=== PATIENT | female | born 1935 | race Two or more races ===

== ENCOUNTER → 2016-07-18 | Outpatient (CLI) | payer MEDICARE | END | disposition home or self-care (01) | LOC: CPPFTMAIN 09:59 | PROVIDERS: ATTEND Internal Medicine | DX: J44.9 Chronic obstructive pulmonary disease, unspecified (principal) | CPT/HCPCS: 94060; 94726; 94729 ==

== ENCOUNTER 2021-05-26 18:56 | Emergency (ER) | payer MEDICARE ==
[2021-05-26 19:10] VITALS: TEMP 97.9
--- NOTE | 2021-05-26 19:54 | XR ---
EXAMINATION TYPE: XR chest 2V DATE OF EXAM: 05/26/2021 COMPARISON: 05/13/2015 HISTORY: Difficulty breathing TECHNIQUE: Frontal and lateral views of the chest are obtained. FINDINGS: There is no focal air space opacity, pleural effusion, or pneumothorax seen. The cardiac silhouette size is within normal limits. The osseous structures are stable. Stable lower thoracic s pine compression deformity with kyphosis. Stable 7 mm left lower long calcified granuloma. Post surgi fernando changes involving the right upper long with suggestion of bullous changes. IMPRESSION: No acute cardiopulmonary process. Chronic findings as above.
[2021-05-26] MEDS ORDERED: ACETAMINOPHEN TAB 325 MG TAB PO STA (20:20)
[2021-05-26 20:27] LABS: HCT 41.5 % (34.0-46.0); HGB 13.6 gm/dL (11.4-16.0); MCH 31.2 pg (25.0-35.0); MCHC 32.8 g/dL (31.0-37.0); MCV 95.1 fL (80.0-100.0); Platelet Count 314 k/uL (150-450); RBC 4.36 m/uL (3.80-5.40); RDW 12.9 % (11.5-15.5)
[2021-05-26 20:28] LABS: Basophils % (A) 0 %; Eosinophils # (A) 0.1 k/uL (0-0.7); Eosinophils % (A) 1 %; Lymphocytes # (A) 1.4 k/uL (1.0-4.8); Lymphocytes % (A) 14 %; Monocytes # (A) 0.8 k/uL (0-1.0); Monocytes % (A) 8 %; Neutrophils # (A) 7.4 k/uL (1.3-7.7); Neutrophils % (A) 74 %
[2021-05-26 20:32] LABS: INR 0.9 (<1.2); Partial Thromboplastin Time 24.3 sec (22.0-30.0); Prothrombin Time 10.4 sec (9.0-12.0)
--- NOTE | 2021-05-26 20:56 | ED ---
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 The facility completes pulse ox checks on the patient twice a day. They were unable to obtain a pulse ox on the patient this evening and therefore sent the patient into the emergency department for evaluation. She is not having any respiratory complaints. Daughter is at bedside and helps with the history. She denies that the patient has had any worsening shortness of breath, fevers, cough. the patient denies any complaints but does have a history of dementia. No other alleviating, precipitating or modifying factors - Related Data Home Medications Medication Instructions Recorded Confirmed Acetaminophen [Tylenol Arthritis] 1,300 mg PO Q8H PRN 05/26/21 05/26/21 Artificial Tears-Hypromellose 1 drops BOTH EYES DIRECTED PRN 05/26/21 05/26/21 [Artificial Tear Drops] Aspirin EC [Ecotrin Low Dose] 81 mg PO DAILY@0800 05/26/21 05/26/21 Bismuth Subsalicylate 1 dose PO DIRECTED PRN 05/26/21 05/26/21 [Pepto-Bismol] Budesonide/Formoterol Fumarate 2 puff INHALATION RT-BID 05/26/21 05/26/21 [Symbicort 160-4.5 Mcg Inhaler] Carbamide Peroxide [Debrox Otic] 1 applic BOTH EARS DIRECTED PRN 05/26/21 05/26/21 Cholecalciferol [Vitamin D3 (25 25 mcg PO DAILY@0800 05/26/21 05/26/21 Mcg = 1000 Iu)] Gnp Muscle Rub 10-15% Cream 1 applic TOPICAL DIRECTED PRN 05/26/21 05/26/21 Hydrocortisone Cream 1 applic TOPICAL DIRECTED PRN 05/26/21 05/26/21 [Hydrocortisone 1% Cream] Ibuprofen [Motrin] 600 mg PO BID PRN 05/26/21 05/26/21 Ipratropium/Albuter 20-100Mcg 1 puff INHALATION RT-QID 05/26/21 05/26/21 [Combivent Respimat 20-100Mcg Inhaler] Loperamide HCl [Loperamide] 2 mg PO DIRECTED PRN 05/26/21 05/26/21 Loratadine 10 mg PO Q48H 05/26/21 05/26/21 Mag Hydrox/Aluminum Hyd/Simeth 1 dose PO DIRECTED PRN 05/26/21 05/26/21 [Mylanta Maximum Strength Liq] Magnesium Capsule 300 mg PO DAILY@0800 05/26/21 05/26/21 Magnesium Hydroxide [Milk of 1 dose PO DIRECTED PRN 05/26/21 05/26/21 Magnesia] Methyl Salicylate/Menth/Camph 1 patch TOPICAL DAILY PRN 05/26/21 05/26/21 [Salonpas 3.1%-6.0%-10.0% Patch] Multivitamins, Thera [Multivitamin 1 tab PO DAILY@0800 05/26/21 05/26/21 (formulary)] Uzoudzws-Zynynyehbi-Ytsi Oint 1 applic TOPICAL DIRECTED PRN 05/26/21 05/26/21 [Triple Antibiotic Ointment] Simethicone [Gas-X] 1 dose PO DIRECTED PRN 05/26/21 05/26/21 Sudogest Pe 10 mg PO DIRECTED PRN 05/26/21 05/26/21 Topricin Pain Relief Cream 1 applic TOPICAL QID PRN 05/26/21 05/26/21 guaiFENesin-Coden 100-10MG/5ML 1 dose PO DIRECTED PRN 05/26/21 05/26/21 [Robitussin AC] Allergies Allergy/AdvReac Type Severity Reaction Status Date / Time adhesive AdvReac Unknown Verified 05/26/21 21:36 bacitracin AdvReac Unknown Verified 05/26/21 21:36 [From Neosporin ([id number])] bacitracin zinc AdvReac Unknown Verified 05/26/21 21:36 [From Neosporin ([id number])] neomycin sulfate AdvReac Unknown Verified 05/26/21 21:36 [From Neosporin ([id number])] polymyxin B AdvReac Unknown Verified 05/26/21 21:36 [From Neosporin ([id number])] Review of Systems ROS Statement: Those systems with pertinent positive or pertinent negative responses have been documented in the HPI. ROS Other: All systems not noted in ROS Statement are negative. Past Medical History Past Medical History: COPD, Dementia, Hypertension, Pneumonia Additional Past Medical History / Comment(s): 05-10-15 50% PNEUMOTHORAZ RT LUNG/CHEST TUBE PLACED. OTHER PAST MEDICAL HX INCLUDES: bronchitis, osteoporosis, lt eye cataract, poor circulation to legs, dry skin on ffet,varicsoe veins.occ vertigo History of Any Multi-Drug Resistant Organisms: None Reported Past Surgical History: No Surgical Hx Reported Additional Past Surgical History / Comment(s): throat polyps remoced Past Anesthesia/Blood Transfusion Reactions: No Reported Reaction Additional Past Anesthesia/Blood Transfusion Reaction / Comment(s): clausterphobia Past Psychological History: No Psychological Hx Reported Smoking Status: Former smoker Past Alcohol Use History: None Reported Past Drug Use History: None Reported - Past Family History Father Family Medical History: Coronary Artery Disease (CAD) Additional Family Medical History / Comment(s): ashd, at age 86 Mother Additional Family Medical History / Comment(s): at age 41 in childbirth General Exam Limitations: altered mental status General appearance: alert, in no apparent distress Head exam: Present: atraumatic, normocephalic, normal inspection Eye exam: Present: normal appearance, PERRL, EOMI. Absent: scleral icterus, conjunctival injection, periorbital swelling ENT exam: Present: normal exam, mucous membranes moist Neck exam: Present: normal inspection. Absent: tenderness, meningismus, lymphadenopathy Respiratory exam: Present: decreased breath sounds. Absent: respiratory distress, wheezes, rales, rhonchi, stridor Cardiovascular Exam: Present: regular rate, normal rhythm, normal heart sounds. Absent: systolic murmur, diastolic murmur, rubs, gallop, clicks GI/Abdominal exam: Present: soft, normal bowel sounds. Absent: distended, tenderness, guarding, rebound, rigid Extremities exam: Present: normal inspection, full ROM, normal capillary refill. Absent: tenderness, pedal edema, joint swelling, calf tenderness Back exam: Present: normal inspection Neurological exam: Present: alert, oriented X3, CN II-XII intact Psychiatric exam: Present: normal affect, normal mood Skin exam: Present: warm, dry, intact, normal color. Absent: rash Course Vital Signs 05/26/21 05/26/21 05/26/21 19:02 20:10 20:50 Temperature 97.9 F Pulse Rate 89 87 Respiratory 20 22 22 Rate Blood Pressure 143/82 130/80 O2 Sat by Pulse 99 95 Oximetry 05/26/21 05/26/21 21:30 22:36 Temperature Pulse Rate 78 Respiratory 18 Rate Blood Pressure 125/76 O2 Sat by Pulse 97 98 Oximetry EKG Findings - EKG Comments: EKG Findings:: EKG demonstrates sinus rhythm with a rate of 89. NV interval 160. QRS 93. QTC 388. J-point elevation in V2 through V4. No reciprocal depression Medical Decision Making - Medical Decision Making Upon arrival patient is placed into room 22. Thorough history and physical exam was performed. Patient does have an oxygen saturation of 98% IV access is established and laboratory studies were conducted. Chest x-ray is performed which demonstrates no acute cardio pulmonary process. Patient continues to maintain a saturation 98%. Patient will be discharged back to [facility] which the patient and her daughter did agree to this plan. Return for any new or worsening symptoms. Patient was discharged home in stable condition - Lab Data Result diagrams: 05/26/21 20:17 05/26/21 20:41 Lab Results 05/26/21 05/26/21 05/26/21 Range/Units 20:17 20:17 20:17 WBC 10.0 (3.8-10.6) k/uL RBC 4.36 (3.80-5.40) m/uL Hgb 13.6 (11.4-16.0) gm/dL Hct 41.5 (34.0-46.0) % MCV 95.1 (80.0-100.0) fL MCH 31.2 (25.0-35.0) pg MCHC 32.8 (31.0-37.0) g/dL RDW 12.9 (11.5-15.5) % Plt Count 314 (150-450) k/uL MPV 9.0 Neutrophils % 74 % Lymphocytes % 14 % Monocytes % 8 % Eosinophils % 1 % Basophils % 0 % Neutrophils # 7.4 (1.3-7.7) k/uL Lymphocytes # 1.4 (1.0-4.8) k/uL Monocytes # 0.8 (0-1.0) k/uL Eosinophils # 0.1 (0-0.7) k/uL Basophils # 0.0 (0-0.2) k/uL PT 10.4 (9.0-12.0) sec INR 0.9 (<1.2) APTT 24.3 (22.0-30.0) sec Sodium (137-145) mmol/L Potassium (3.5-5.1) mmol/L Chloride (98-107) mmol/L Carbon Dioxide (22-30) mmol/L Anion Gap mmol/L BUN (7-17) mg/dL Creatinine (0.52-1.04) mg/dL Est GFR (CKD-EPI)AfAm (>60 ml/min/1.73 sqM) Est GFR (CKD-EPI)NonAf (>60 ml/min/1.73 sqM) Glucose (74-99) mg/dL Plasma Lactic Acid Alberto 1.2 (0.7-2.0) mmol/L Calcium (8.4-10.2) mg/dL Total Bilirubin (0.2-1.3) mg/dL AST (14-36) U/L ALT (4-34) U/L Alkaline Phosphatase (38-126) U/L Troponin I (0.000-0.034) ng/mL NT-Pro-B Natriuret Pep pg/mL Total Protein (6.3-8.2) g/dL Albumin (3.5-5.0) g/dL 05/26/21 05/26/21 05/26/21 Range/Units 20:17 20:17 20:41 WBC (3.8-10.6) k/uL RBC (3.80-5.40) m/uL Hgb (11.4-16.0) gm/dL Hct (34.0-46.0) % MCV (80.0-100.0) fL MCH (25.0-35.0) pg MCHC (31.0-37.0) g/dL RDW (11.5-15.5) % Plt Count (150-450) k/uL MPV Neutrophils % % Lymphocytes % % Monocytes % % Eosinophils % % Basophils % % Neutrophils # (1.3-7.7) k/uL Lymphocytes # (1.0-4.8) k/uL Monocytes # (0-1.0) k/uL Eosinophils # (0-0.7) k/uL Basophils # (0-0.2) k/uL PT (9.0-12.0) sec INR (<1.2) APTT (22.0-30.0) sec Sodium 132 L (137-145) mmol/L Potassium 5.1 (3.5-5.1) mmol/L Chloride 103 (98-107) mmol/L Carbon Dioxide 19 L (22-30) mmol/L Anion Gap 10 mmol/L BUN 30 H (7-17) mg/dL Creatinine 1.13 H (0.52-1.04) mg/dL Est GFR (CKD-EPI)AfAm 51 (>60 ml/min/1.73 sqM) Est GFR (CKD-EPI)NonAf 44 (>60 ml/min/1.73 sqM) Glucose 110 H (74-99) mg/dL Plasma Lactic Acid Alberto (0.7-2.0) mmol/L Calcium 9.3 (8.4-10.2) mg/dL Total Bilirubin 0.6 (0.2-1.3) mg/dL AST 27 (14-36) U/L ALT 15 (4-34) U/L Alkaline Phosphatase 97 (38-126) U/L Troponin I <0.012 (0.000-0.034) ng/mL NT-Pro-B Natriuret Pep 382 pg/mL Total Protein 7.5 (6.3-8.2) g/dL Albumin 4.0 (3.5-5.0) g/dL Disposition Clinical Impression: Chronic respiratory insufficiency Disposition: HOME SELF-CARE Condition: Stable Instructions (If sedation given, give patient instructions): COPD (Chronic Obstructive Pulmonary Disease) (ED) Additional Instructions: Your oxygen level has been 98% on 2 L of oxygen. Please wear this at all times and follow up with primary care doctor. Return for any new or worsening sym ptoms Is patient prescribed a controlled substance at d/c from ED?: No Referrals: Audrey Whitney MD [Primary Care Provider] - 1-2 days Time of Disposition: 22:34
[2021-05-26 21:06] LABS: Calcium 9.3 mg/dL (8.4-10.2); Potassium 5.1 mmol/L (3.5-5.1); Total Bilirubin 0.6 mg/dL (0.2-1.3); Total Protein 7.5 g/dL (6.3-8.2)
[2021-05-26 22:38] VITALS: BP 125/76; PULSE 78; RESP 18
== END 2021-05-26 23:10 | disposition home or self-care (01) ==
LOC: EC 18:56
DX: R06.89 Other abnormalities of breathing (principal); R06.02 Shortness of breath; J44.9 Chronic obstructive pulmonary disease, unspecified; I10 Essential (primary) hypertension; Z87.891 Personal history of nicotine dependence; Z91.09 Other allergy status, other than to drugs and biological substances; Z88.1 Allergy status to other antibiotic agents; Z79.51 Long term (current) use of inhaled steroids; Z79.899 Other long term (current) drug therapy
CPT/HCPCS: 36415; 71046; 80053; 83605; 83880; 84484; 85025; 85610; 85730; 93005; 99285

== ENCOUNTER 2022-04-22 10:33 | Emergency (ER) | payer MEDICARE ==
[2022-04-22 10:40] VITALS: RESP 18; TEMP 97.7
[2022-04-22 10:57] LABS: Basophils % (A) 0 %; Eosinophils # (A) 0.2 k/uL (0-0.7); Eosinophils % (A) 2 %; HCT 41.9 % (34.0-46.0); HGB 13.3 gm/dL (11.4-16.0); Lymphocytes # (A) 1.2 k/uL (1.0-4.8); Lymphocytes % (A) 14 %; MCH 30.3 pg (25.0-35.0); MCHC 31.8 g/dL (31.0-37.0); MCV 95.4 fL (80.0-100.0); Mean Platelet Volume 9.5; Monocytes # (A) 0.4 k/uL (0-1.0); Monocytes % (A) 5 %; Neutrophils # (A) 6.7 k/uL (1.3-7.7); Neutrophils % (A) 78 %; Platelet Count 338 k/uL (150-450); RBC 4.39 m/uL (3.80-5.40); RDW 13.4 % (11.5-15.5); WBC 8.6 k/uL (3.8-10.6)
[2022-04-22 11:32] LABS: Calcium 9.6 mg/dL (8.4-10.2); Magnesium 2.3 mg/dL (1.6-2.3); Potassium 4.7 mmol/L (3.5-5.1); Total Bilirubin 0.8 mg/dL (0.2-1.3); Total Protein 7.7 g/dL (6.3-8.2)
--- NOTE | 2022-04-22 12:10 | XR ---
EXAMINATION TYPE: XR chest 2V DATE OF EXAM: 04/22/2022 COMPARISON: Chest x-ray May 26, 2021 HISTORY: Vomiting and weakness. TECHNIQUE: Frontal and lateral views of the chest are obtained. FINDINGS: Osseous structures redemonstrated demineralized. Exaggerated thoracic kyphosis redemonstra debora. There is severe compression type fracture in the lower thoracic spine redemonstrated. Underlying scoliosis is redemonstrated. Chronic parenchymal changes bilaterally redemonstrated without new foca l airspace opacity, pleural effusion, or pneumothorax seen. Cardiac silhouette size is stable in the upper limits of normal. There is calcified nodule or granuloma in the posterior left lower lobe redem onstrated. IMPRESSION: Chronic changes without acute pulmonary process. No significant change from prior.
--- NOTE | 2022-04-22 13:30 | CT ---
EXAMINATION TYPE: CT abdomen pelvis w con DATE OF EXAM: 04/22/2022 HISTORY: possible GI bleed. Pain and anemia. CT DLP: 536.1mGycm Automated Exposure Control for Dose Reduction was Utilized. CONTRAST: CT scan of the abdomen and pelvis is performed with IV Contrast, patient injected with 100 mL of Isov ue 300. COMPARISON: CTA August 01, 2021 FINDINGS: LUNG BASES: Emphysematous change with dependent atelectasis and left basilar calcified nodule or bert gn granuloma is redemonstrated. Coronary artery calcification is redemonstrated. LIVER/GB: Intraluminal gallstones in gallbladder with distended margins redemonstrated. Hepatomegaly with prominent right hepatic lobe redemonstrated. No new biliary dilatation. PANCREAS: Not well seen and may be atrophic. SPLEEN: Occasional calcification throughout the spleen redemonstrated. Finding consistent with produc ts of granulomatous disease. ADRENALS: No significant abnormality is seen. KIDNEYS: Diminished size and cortical thinning to the right kidney. New left-sided nephrolithiasis tay spected. No hydronephrosis seen bilaterally. BOWEL: Suboptimal evaluation without enteric contrast and patient having little fat. Prominent divert iculosis throughout the colon greatest involving the sigmoid colon. No suspicious small or large scott l dilatation. UTERUS/ADNEXA: Anteverted small size uterus. Central hypodense prominence could reflect entrapped flu id or endometrial thickening axial image 58 LYMPH NODES: No greater than 1cm abdominal or pelvic lymph nodes are appreciated. OSSEOUS STRUCTURES: Osseous structures are demineralized. Scoliosis is redemonstrated with mild to moderate chronic compression type fracture at L3 level. Carey re chronic compression fracture at T12 level redemonstrated. Advanced degenerative change left greate r than right hip joints is redemonstrated. OTHER: Moderate to severe plaque of the aorta extends into branch vessels. No suspicious blush seen t o identify source of active GI bleed IMPRESSION: 1. Source of acute GI bleed or hemorrhage not identified. 2. No bowel obstruction. Diffuse colonic diverticulosis redemonstrated. No convincing CT evidence for acute diverticulitis. 3. New left-sided nephrolithiasis. No hydronephrosis or obstructing ureter calculi clearly seen. No d efinitive new acute findings are evident. 4. Follow-up nonemergent pelvic ultrasound is advised to further evaluate uterus to rule out endometr ial thickening or neoplasm.
--- NOTE | 2022-04-22 13:42 | ED ---
General Adult HPI - General Chief complaint: Abdominal Pain Stated complaint: GI Bleed Source: EMS Mode of arrival: EMS Limitations: no limitations - History of Present Illness Initial comments: This is an 86-year-old female who presents emergency department with a report of dark stool and possible dark vomit. EMS did report that the nursing facility saw this happen earlier today and they wanted her to be seen in the emergency department. On evaluation, the patient was pleasantly confused and was at her baseline. The patient did not complain of any acute pain or distress as well as any nausea or vomiting. The patient was relaxing comfortably in bed without any acute distress on my evaluation and cannot provide any further answers or any further history. - Related Data Home Medications Medication Instructions Recorded Confirmed Acetaminophen [Tylenol Arthritis] 1,300 mg PO Q8H PRN 05/26/21 08/01/21 Artificial Tears-Hypromellose 1 drops BOTH EYES DIRECTED PRN 05/26/21 08/01/21 [Artificial Tear Drops] Bismuth Subsalicylate 1 dose PO DIRECTED PRN 05/26/21 08/01/21 [Pepto-Bismol] Budesonide/Formoterol Fumarate 2 puff INHALATION RT-BID 05/26/21 08/01/21 [Symbicort 160-4.5 Mcg Inhaler] Carbamide Peroxide [Debrox Otic] 1 applic BOTH EARS DIRECTED PRN 05/26/21 08/01/21 Cholecalciferol [Vitamin D3 (25 25 mcg PO DAILY@0800 05/26/21 08/01/21 Mcg = 1000 Iu)] Gnp Muscle Rub 10-15% Cream 1 applic TOPICAL DIRECTED PRN 05/26/21 08/01/21 Hydrocortisone Cream 1 applic TOPICAL DIRECTED PRN 05/26/21 08/01/21 [Hydrocortisone 1% Cream] Ipratropium/Albuter 20-100Mcg 1 puff INHALATION RT-QID 05/26/21 08/01/21 [Combivent Respimat 20-100Mcg Inhaler] Loperamide HCl [Loperamide] 2 mg PO DIRECTED PRN 05/26/21 08/01/21 Loratadine 10 mg PO Q48H 05/26/21 08/01/21 Mag Hydrox/Aluminum Hyd/Simeth 1 dose PO DIRECTED PRN 05/26/21 08/01/21 [Mylanta Maximum Strength Liq] Magnesium Capsule 300 mg PO DAILY@0800 05/26/21 08/01/21 Methyl Salicylate/Menth/Camph 1 patch TOPICAL DAILY PRN 05/26/21 08/01/21 [Salonpas 3.1%-6.0%-10.0% Patch] Multivitamins, Thera [Multivitamin 1 tab PO DAILY@0800 05/26/21 08/01/21 (formulary)] Xuwtzsir-Qfmjbyvbmg-Ckgb Oint 1 applic TOPICAL DIRECTED PRN 05/26/21 08/01/21 [Triple Antibiotic Ointment] Simethicone [Gas-X] 1 dose PO DIRECTED PRN 05/26/21 08/01/21 Sudogest Pe 10 mg PO DIRECTED PRN 05/26/21 08/01/21 guaiFENesin-Coden 100-10MG/5ML 1 dose PO DIRECTED PRN 05/26/21 08/01/21 [Robitussin AC] Calcium Carbonate [Tums] 500 mg PO DIRECTED PRN 08/01/21 08/01/21 Previous Rx's Medication Instructions Recorded Pantoprazole [Protonix] 40 mg PO DAILY #30 tab 08/08/21 Allergies Allergy/AdvReac Type Severity Reaction Status Date / Time adhesive AdvReac Unknown Verified 08/01/21 21:26 bacitracin AdvReac Unknown Verified 08/01/21 21:26 [From Neosporin ([id number])] bacitracin zinc AdvReac Unknown Verified 08/01/21 21:26 [From Neosporin ([id number])] neomycin sulfate AdvReac Unknown Verified 08/01/21 21:26 [From Neosporin ([id number])] polymyxin B AdvReac Unknown Verified 08/01/21 21:26 [From Neosporin ([id number])] Review of Systems ROS Statement: Those systems with pertinent positive or pertinent negative responses have been documented in the HPI. ROS Other: All systems not noted in ROS Statement are negative. Past Medical History Past Medical History: COPD, Dementia, Hypertension, Memory Impairment, Pneumonia, Skin Disorder, Vascular Disorder Additional Past Medical History / Comment(s): Past HTN but off medication d/t weight loss/lower blood pressure, R lung spontaneous pneumothorax/chest tube inserted and surgery done, bronchitis, cognitive impairment, osteoporosis, chronic pain L hip and lately lower back, poor circulation bilateral legs, covid 2020, prolapsed uterus, diverticular disease, varicosities bilaterally, infrequent vertigo, UTI, incontinence, atopic dermatitis, wheelchair bound and recently slid out of wheelchair. History of Any Multi-Drug Resistant Organisms: None Reported Past Surgical History: No Surgical Hx Reported Additional Past Surgical History / Comment(s): 2016 R lung surgery d/t pneumothorax at [facility] Dr. Pena, throat polyps removed, peridontal surgery. Past Anesthesia/Blood Transfusion Reactions: No Reported Reaction Additional Past Anesthesia/Blood Transfusion Reaction / Comment(s): clausterphobia Past Psychological History: No Psychological Hx Reported Smoking Status: Former smoker Past Alcohol Use History: None Reported Past Drug Use History: None Reported - Past Family History Father Family Medical History: Coronary Artery Disease (CAD) Additional Family Medical History / Comment(s): ashd, at age 86. Father was a "drinker" Mother Additional Family Medical History / Comment(s): at age 41 in childbirth General Exam Limitations: altered mental status General appearance: alert, in no apparent distress, cachectic Head exam: Present: atraumatic, normocephalic, normal inspection Eye exam: Present: normal appearance, PERRL Pupils: Present: normal accommodation ENT exam: Present: normal exam, normal oropharynx, mucous membranes moist Neck exam: Present: normal inspection, full ROM Respiratory exam: Present: normal lung sounds bilaterally Cardiovascular Exam: Present: regular rate, normal rhythm, normal heart sounds GI/Abdominal exam: Present: soft, normal bowel sounds Extremities exam: Present: normal inspection, full ROM Back exam: Present: normal inspection, full ROM Neurological exam: Present: alert, oriented X3, CN II-XII intact Psychiatric exam: Present: normal affect, normal mood Skin exam: Present: warm, dry Course Vital Signs 04/22/22 10:34 Temperature 97.7 F Pulse Rate 85 Respiratory 18 Rate Blood Pressure 140/81 O2 Sat by Pulse 96 Oximetry EKG Findings - EKG Comments: EKG Findings:: In EKG was obtained and was interpreted by myself showing a rate of 67, [place] interval 137, QRS duration of 111 and QTC of 400. This EKG showed a normal sinus rhythm with no ST segment elevation or depression noted. Medical Decision Making - Medical Decision Making Was pt. sent in by a medical professional or institution (WILLIE Moyer, INBOUND SALES ADVISOR, urgent care, hospital, or fci...) When possible be specific @ -Yes, assisted living facility Did you speak to anyone other than the patient for history (EMS, parent, family, police, friend...)? What history was obtained from this source @ -Yes, EMS and patient daughter Did you review nursing and triage notes (agree or disagree)? Why? @ -I reviewed and agree with nursing and triage notes Were old charts reviewed (outside hosp., previous admission, EMS record, old EKG, old radiological studies, urgent care reports/EKG's, fci records)? Report findings @ -No old charts were reviewed Differential Diagnosis (chest pain, altered mental status, abdominal pain women, abdominal pain men, vaginal bleeding, weakness, fever, dyspnea, syncope, headache, dizziness, GI bleed, back pain, seizure, CVA, palpatations, mental health)? @ -Diarrhea, gastroenteritis, GI bleed EKG interpreted by me (3pts min.). @ -As above X-rays interpreted by me (1pt min.). @ -Chest x-ray was obtained and was interpreted by myself showing no acute process and no change from the prior. CT interpreted by me (1pt min.). @ -CT abdomen and pelvis with contrast was obtained and was interpreted by myself showing no acute process including negative for bowel obstruction. There was new left-sided nephrolithiasis however no hydronephrosis or obstructing calculi. There was colonic diverticulosis without diverticulitis. U/S interpreted by me (1pt. min.). @ -None done What testing was considered but not performed or refused? (CT, X-rays, U/S, labs)? Why? @ -None What meds were considered but not given or refused? Why? @ -None Did you discuss the management of the patient with other professionals (professionals i.e. WILLIE Moyer, INBOUND SALES ADVISOR, lab, RT, psych nurse, social work associate, electric trucker, teacher, customs and immigration officer, director of casework services)? Give summary @ -No Was smoking cessation discussed for >3mins.? @ -No Was critical care preformed (if so, how long)? @ -No Were there social determinants of health that impacted care today? How? (Homelessness, low income, unemployed, alcoholism, drug addiction, transportation, low edu. Level, literacy, decrease access to med. care, senior living, rehab)? @ -No Was there de-escalation of care discussed even if they declined (Discuss DNR or withdrawal of care, Hospice)? DNR status @ -No What co-morbidities impacted this encounter? (DM, HTN, Smoking, COPD, CAD, Cancer, CVA, ARF, Chemo, Hep., AIDS, mental health diagnosis, sleep apnea, morbid obesity)? @ -Dementia, at baseline Was patient admitted / discharged? Hospital course, mention meds given and route, prescriptions, significant lab abnormalities, going to OR and other pertinent info. @ -The patient was seen and evaluated in the emergency department. Physical exam, the patient was resting in bed without any acute distress. Vital signs were stable. The patient was at her baseline per EMS and the patient's daughter. All laboratory workup as well as imaging was negative for any pathology. The patient had a negative guaiac and denied of any signs of coffee- ground emesis. A sugar decision making conversation was had with the patient's daiughter and we did agree to discharge the patient back to the nursing facility and to continue to monitor her symptoms. The option was presented to or for possible transfer however the patient's daughter stated that she did not want to put the patient is at this time. I did agree with this and told her to have the nursing facility contacts the emergency room once again if she has worsening or persistent coffee ground emesis. The patient herself continued to remain stable and had no symptoms of vomiting or nausea. The patient did not have any evidence of coffee-ground emesis on her closed or around her mouth. The patient had a negative workup and was stable for discharge back to her assisted living facility. The patient's daughter was agreeable to this and the patient was discharged back to the assisted living facility via EMS. Undiagnosed new problem with uncertain prognosis? @ -No Drug Therapy requiring intensive monitoring for toxicity (Heparin, Nitro, Insulin, Cardizem)? @ -No Were any procedures done? @ -No Diagnosis/symptom? @ -Abdominal pain, NOS with diarrhea Acute, or Chronic, or Acute on Chronic? @ -Acute Uncomplicated (without systemic symptoms) or Complicated (systemic symptoms)? @ -Uncomplicated Side effects of treatment? @ -No Exacerbation, Progression, or Severe Exacerbation? @ -No Poses a threat to life or bodily function? How? (Chest pain, [place], [place], pneumonia, PE, COPD, DKA, ARF, appy, cholecystitis, CVA, Diverticulitis, Homicidal, Suicidal, threat to staff... and all critical care pts) @ -No - Lab Data Result diagrams: 04/22/22 10:45 04/22/22 10:45 Lab Results 04/22/22 04/22/22 04/22/22 Range/Units 10:45 10:45 10:45 WBC 8.6 (3.8-10.6) k/uL RBC 4.39 (3.80-5.40) m/uL Hgb 13.3 (11.4-16.0) gm/dL Hct 41.9 (34.0-46.0) % MCV 95.4 (80.0-100.0) fL MCH 30.3 (25.0-35.0) pg MCHC 31.8 (31.0-37.0) g/dL RDW 13.4 (11.5-15.5) % Plt Count 338 (150-450) k/uL MPV 9.5 Neutrophils % 78 % Lymphocytes % 14 % Monocytes % 5 % Eosinophils % 2 % Basophils % 0 % Neutrophils # 6.7 (1.3-7.7) k/uL Lymphocytes # 1.2 (1.0-4.8) k/uL Monocytes # 0.4 (0-1.0) k/uL Eosinophils # 0.2 (0-0.7) k/uL Basophils # 0.0 (0-0.2) k/uL Sodium 141 (137-145) mmol/L Potassium 4.7 (3.5-5.1) mmol/L Chloride 105 (98-107) mmol/L Carbon Dioxide 26 (22-30) mmol/L Anion Gap 10 mmol/L BUN 21 H (7-17) mg/dL Creatinine 0.71 (0.52-1.04) mg/dL Est GFR (CKD-EPI)AfAm 89 (>60 ml/min/1.73 sqM) Est GFR (CKD-EPI)NonAf 77 (>60 ml/min/1.73 sqM) Glucose 88 (74-99) mg/dL Calcium 9.6 (8.4-10.2) mg/dL Magnesium 2.3 (1.6-2.3) mg/dL Total Bilirubin 0.8 (0.2-1.3) mg/dL AST 52 H (14-36) U/L ALT 33 (4-34) U/L Alkaline Phosphatase 358 H (38-126) U/L Troponin I 0.027 (0.000-0.034) ng/mL Total Protein 7.7 (6.3-8.2) g/dL Albumin 4.0 (3.5-5.0) g/dL Lipase 81 (23-300) U/L Stool Occult Blood (Negative) 04/22/22 Range/Units 10:45 WBC (3.8-10.6) k/uL RBC (3.80-5.40) m/uL Hgb (11.4-16.0) gm/dL Hct (34.0-46.0) % MCV (80.0-100.0) fL MCH (25.0-35.0) pg MCHC (31.0-37.0) g/dL RDW (11.5-15.5) % Plt Count (150-450) k/uL MPV Neutrophils % % Lymphocytes % % Monocytes % % Eosinophils % % Basophils % % Neutrophils # (1.3-7.7) k/uL Lymphocytes # (1.0-4.8) k/uL Monocytes # (0-1.0) k/uL Eosinophils # (0-0.7) k/uL Basophils # (0-0.2) k/uL Sodium (137-145) mmol/L Potassium (3.5-5.1) mmol/L Chloride (98-107) mmol/L Carbon Dioxide (22-30) mmol/L Anion Gap mmol/L BUN (7-17) mg/dL Creatinine (0.52-1.04) mg/dL Est GFR (CKD-EPI)AfAm (>60 ml/min/1.73 sqM) Est GFR (CKD-EPI)NonAf (>60 ml/min/1.73 sqM) Glucose (74-99) mg/dL Calcium (8.4-10.2) mg/dL Magnesium (1.6-2.3) mg/dL Total Bilirubin (0.2-1.3) mg/dL AST (14-36) U/L ALT (4-34) U/L Alkaline Phosphatase (38-126) U/L Troponin I (0.000-0.034) ng/mL Total Protein (6.3-8.2) g/dL Albumin (3.5-5.0) g/dL Lipase (23-300) U/L Stool Occult Blood Negative (Negative) Disposition Clinical Impression: Abdominal pain Disposition: HOME SELF-CARE Condition: Stable Instructions (If sedation given, give patient instructions): Abdominal Pain (ED) Is patient prescribed a controlled substance at d/c from ED?: No Referrals: Angel Kovacs DO [Primary Care Provider] - 1-2 days Time of Disposition: 13:30
[2022-04-22 14:32] VITALS: BP 138/81; PULSE 82
== END 2022-04-22 14:32 | disposition home or self-care (01) ==
LOC: EC 10:33
DX: N20.0 Calculus of kidney (principal); J44.9 Chronic obstructive pulmonary disease, unspecified; I10 Essential (primary) hypertension; Z87.891 Personal history of nicotine dependence; Z91.048 Other nonmedicinal substance allergy status; Z88.1 Allergy status to other antibiotic agents; Z88.8 Allergy status to other drugs, medicaments and biological substances; Z79.899 Other long term (current) drug therapy; Z86.16 Personal history of COVID-19; M81.0 Age-related osteoporosis without current pathological fracture; Z79.51 Long term (current) use of inhaled steroids
CPT/HCPCS: 36415; 93005; 80053; 83690; 83735; 84484; 85025; 82272; 71046; 74177; 99285; Q9967

== ENCOUNTER 2022-06-15 12:00 | Inpatient (IN) | payer MEDICARE ==
--- NOTE | 2022-06-15 12:23 | ED ---
General Adult HPI - General Chief complaint: Recheck/Abnormal Lab/Rx Stated complaint: FAILURE TO THRIVE Time Seen by Provider: 06/15/22 12:02 Source: patient Mode of arrival: ambulatory Limitations: no limitations - History of Present Illness Initial comments: Dictation was produced using [employer] dictation software. please excuse any grammatical, word or spelling errors. Chief Complaint: 86-year-old female sent in from assisted living facility for failure to thrive and congestion History of Present Illness: Patient is a 6-year-old female she has history of debility. She is recently admitted for GI bleed. Patient states she does not know why she is here when asked where she has she states she is at [facility]. Denies any pain complaints. According to nurse received report from EMS patient was found have some "congestion." He also report that patient has not been eating or drinking. Patient has no complaints at this time. She is a full code The ROS documented in this emergency department record has been reviewed and confirmed by me. Those systems with pertinent positive or negative responses have been documented in the HPI. All other systems are other negative and/or noncontributory. PHYSICAL EXAM: General Impression: Alert and oriented x3/4, not in acute distress, cachectic HEENT: Normocephalic atraumatic, extra-ocular movements intact, pupils equal and reactive to light bilaterally, mucous membranes moist. Cardiovascular: Heart regular rate and rhythm Chest: Able to complete full sentences, no retractions, no tachypnea Abdomen: abdomen soft, non-tender, non-distended, no organomegaly Musculoskeletal: Pulses present and equal in all extremities, no peripheral edema, contracted at the hips Motor: no focal deficits noted Neurological: CN II-XII grossly intact, no focal motor or sensory deficits noted Skin: Intact with no visualized rashes Psych: Normal affect and mood ED course: 86-year-old female presents emergency Department from assisted living facility for failure to thrive. She lives and has been refusing to eat and take her medications. There is report of congestion. Patient denies any respiratory issues. Vital signs upon arrival are within acceptable limits. Nursing notes and chart review was performed My EKG interpretation: Ventricular rate 83, sinus rhythm,. 152, QRS 84, QTC 235. No ME prolongation, no QTC prolongation, no ST or T-wave changes noted. EKG compared to over 07/06/2022 showing no changes. Overall, this EKG is unremarkable Was pt. sent in by a medical professional or institution (WILLIE Moyer, MARINE RESOURCE ECONOMIST, urgent care, hospital, or skilled nursing...) When possible be specific @ -Assisted-living facility Did you speak to anyone other than the patient for history (EMS, parent, family, police, friend...)? What history was obtained from this source @ -EMS Did you review nursing and triage notes (agree or disagree)? Why? @ -Yes, agree Were old charts reviewed (outside hosp., previous admission, EMS record, old EKG, old radiological studies, urgent care reports/EKG's, skilled nursing records)? Report findings @ -Prior discharge summary and progress notes reviewed from most recent hospitalization Differential Diagnosis (chest pain, altered mental status, abdominal pain women, abdominal pain men, vaginal bleeding, musculoskeletal, weakness, fever, dyspnea, syncope, headache, dizziness, GI bleed, back pain, seizure, CVA, palpatations, mental health)? @ -Differential Weakness: Hypoglycemia, shock, sepsis, hyponatremia, anemia, infection, KS, ETOH, adverse medicine reaction, overdose, stroke, this is not meant to be an all-inclusive list. EKG interpreted by me (3pts min.). @ -see above X-rays interpreted by me (1pt min.). @ -Right-sided airspace opacities CT interpreted by me (1pt min.). @ -None done U/S interpreted by me (1pt. min.). @ -None done What testing was considered but not performed or refused? (CT, X-rays, U/S, labs)? Why? @ -None What meds were considered but not given or refused? Why? @ -None Did you discuss the management of the patient with other professionals (professionals i.e. WILLIE Moyer, MARINE RESOURCE ECONOMIST, lab, RT, psych nurse, social work therapist, domestic technician, teacher, amphibious operations officer, heel caser)? Give summary @ -Discussed with hospitalist for admission Was smoking cessation discussed for >3mins.? @ -No Was critical care preformed (if so, how long)? @ -No Were there social determinants of health that impacted care today? How? (Homelessness, low income, unemployed, alcoholism, drug addiction, transportation, low edu. Level, literacy, decrease access to med. care, care home, rehab)? @ -Debility Was there de-escalation of care discussed even if they declined (Discuss DNR or withdrawal of care, Hospice)? DNR status @ -No What co-morbidities impacted this encounter? (DM, HTN, Smoking, COPD, CAD, Cancer, CVA, ARF, Chemo, Hep., AIDS, mental health diagnosis, sleep apnea, morbid obesity)? @ -None Was patient admitted / discharged? Hospital course, mention meds given and route, prescriptions, significant lab abnormalities, going to OR and other pertinent info. @ -86-year-old female presents emergency department for failure to thrive and poor oral intake. There was some reports that patient appeared to be congested. X-ray showed findings suspicious for pneumonia. Labs showed leukocytosis of 17.9. No anion gap acidosis. Patient on hypertensive. Patient will. The bedside. No concerns for severe sepsis at this time. She was given 30 mL per KG bolus based on body weight. Given antibiotics. Patient will be admitted for further care. Undiagnosed new problem with uncertain prognosis? @ -No Drug Therapy requiring intensive monitoring for toxicity (Heparin, Nitro, Insulin, Cardizem)? @ -No Were any procedures done? @ -No Diagnosis/symptom? Acute, or Chronic, or Acute on Chronic? Uncomplicated (without systemic symptoms) or Complicated (systemic symptoms)? @ -1. Acute pneumonia Side effects of treatment? @ -No Exacerbation, Progression, or Severe Exacerbation? @ -No Poses a threat to life or bodily function? How? (Chest pain, USA, KS, pneumonia, PE, COPD, DKA, ARF, appy, cholecystitis, CVA, Diverticulitis, Homicidal, Suicidal, threat to staff... and all critical care pts) @ -yes - Related Data Home Medications Medication Instructions Recorded Confirmed Artificial Tears-Hypromellose 1 drops BOTH EYES DIRECTED PRN 05/26/21 06/15/22 [Artificial Tear Drops] Bismuth Subsalicylate 1 dose PO DIRECTED PRN 05/26/21 06/15/22 [Pepto-Bismol] Budesonide/Formoterol Fumarate 2 puff INHALATION RT-BID@0830,2030 05/26/21 06/15/22 [Symbicort 160-4.5 Mcg Inhaler] Carbamide Peroxide [Debrox Otic] 1 applic BOTH EARS DIRECTED PRN 05/26/21 06/15/22 Cholecalciferol [Vitamin D3 (25 25 mcg PO DAILY@0800 05/26/21 06/15/22 Mcg = 1000 Iu)] Gnp Muscle Rub 10-15% Cream 1 applic TOPICAL DIRECTED PRN 05/26/21 06/15/22 Hydrocortisone Cream 1 applic TOPICAL DIRECTED PRN 05/26/21 06/15/22 [Hydrocortisone 1% Cream] Ipratropium/Albuter 20-100Mcg 1 puff INHALATION RT-QID 05/26/21 06/15/22 [Combivent Respimat 20-100Mcg Inhaler] Loperamide HCl [Loperamide] 2 mg PO DIRECTED PRN 05/26/21 06/15/22 Loratadine 10 mg PO Q48H 05/26/21 06/15/22 Mag Hydrox/Aluminum Hyd/Simeth 1 dose PO DIRECTED PRN 05/26/21 06/15/22 [Mylanta Maximum Strength Liq] Magnesium Capsule 300 mg PO DAILY@0800 05/26/21 06/15/22 Methyl Salicylate/Menth/Camph 1 patch TOPICAL DAILY PRN 05/26/21 06/15/22 [Salonpas 3.1%-6.0%-10.0% Patch] Multivitamins, Thera [Multivitamin 2 tab PO DAILY@0800 05/26/21 06/15/22 (formulary)] Simethicone [Gas-X] 1 dose PO DIRECTED PRN 05/26/21 06/15/22 Sudogest Pe 10 mg PO DIRECTED PRN 05/26/21 06/15/22 guaiFENesin-Coden 100-10MG/5ML 1 dose PO DIRECTED PRN 05/26/21 06/15/22 [Robitussin AC] Calcium Carbonate [Tums] 500 mg PO DIRECTED PRN 08/01/21 06/15/22 Acetaminophen Tab [Tylenol Tab] 500 - 1,000 mg PO Q4H PRN 06/15/22 06/15/22 Acetaminophen [Tylenol] 650 mg PO BID@0800,199906/15/22 06/15/22 Ciprofloxacin Ophth Soln [Cipro 1 drops BOTH EYES QID 06/15/22 06/15/22 0.3% Ophth Soln] Cyproheptadine [Cyproheptadine HCl] 2 mg PO BID@0800,199906/15/22 06/15/22 Ibuprofen [Motrin] 600 mg PO BID PRN 06/15/22 06/15/22 L.acidoph,Paracasei, B.lactis 1 cap PO BID@0800,199906/15/22 06/15/22 [Probiotic] Lactose-Reduced Food [Ensure Plus 118.5 ml PO TID 06/15/22 06/15/22 High Protein] Magnesium Hydroxide [Milk of 1 dose PO DIRECTED PRN 06/15/22 06/15/22 Magnesia] Muscle Milk Protien Drink 1 dose PO BID@0800,1200 06/15/22 06/15/22 Pantoprazole [Protonix] 40 mg PO DAILY@0800 06/15/22 06/15/22 cefUROXime axetiL [Ceftin] 500 mg PO BID@0800,199906/15/22 06/15/22 traMADol HCL 50 mg PO DAILY PRN 06/15/22 06/15/22 traMADol HCL 50 mg PO DAILY@0800 06/15/22 06/15/22 Allergies Allergy/AdvReac Type Severity Reaction Status Date / Time adhesive AdvReac Unknown Verified 06/15/22 12:50 bacitracin AdvReac Unknown Verified 06/15/22 12:50 [From Neosporin ([id number])] bacitracin zinc AdvReac Unknown Verified 06/15/22 12:50 [From Neosporin ([id number])] neomycin sulfate AdvReac Unknown Verified 06/15/22 12:50 [From Neosporin ([id number])] polymyxin B AdvReac Unknown Verified 06/15/22 12:50 [From Neosporin ([id number])] Review of Systems ROS Statement: Those systems with pertinent positive or pertinent negative responses have been documented in the HPI. ROS Other: All systems not noted in ROS Statement are negative. Past Medical History Past Medical History: COPD, Dementia, Hypertension, Memory Impairment, Pneumonia, Skin Disorder, Vascular Disorder Additional Past Medical History / Comment(s): Past HTN but off medication d/t weight loss/lower blood pressure, R lung spontaneous pneumothorax/chest tube inserted and surgery done, bronchitis, cognitive impairment, osteoporosis, chronic pain L hip and lately lower back, poor circulation bilateral legs, covid 2020, prolapsed uterus, diverticular disease, varicosities bilaterally, infre quent vertigo, UTI, incontinence, atopic dermatitis, wheelchair bound and recently slid out of wheelchair. History of Any Multi-Drug Resistant Organisms: None Reported Past Surgical History: No Surgical Hx Reported Additional Past Surgical History / Comment(s): 2016 R lung surgery d/t pneumothorax at [facility] Dr. Pena, throat polyps removed, peridontal surgery. Past Anesthesia/Blood Transfusion Reactions: No Reported Reaction Additional Past Anesthesia/Blood Transfusion Reaction / Comment(s): clausterphobia Past Psychological History: No Psychological Hx Reported Smoking Status: Former smoker Past Alcohol Use History: None Reported Past Drug Use History: None Reported - Past Family History Father Family Medical History: Coronary Artery Disease (CAD) Additional Family Medical History / Comment(s): ashd, at age 86. Father was a "drinker" Mother Additional Family Medical History / Comment(s): at age 41 in childbirth General Exam Limitations: no limitations Course Vital Signs 06/15/22 12:04 Temperature 98 F Pulse Rate 78 Respiratory 18 Rate Blood Pressure 130/72 O2 Sat by Pulse 99 Oximetry Procedures - Sepsis Sepsis Focused Exam #1 Time Sepsis Criteria Met: 13:48 Sepsis Focused Exam Date: 06/15/22 Sepsis Focused Exam Time: 13:48 Sepsis Focused Exam Complete: Yes Vital Signs & RN Notes Reviewed: Yes Capillary Refill: < 2 Seconds: Fingers, Toes Peripheral Pulses: Normal: Radial (R), Radial (L), Posterior Tibialis (R), Posterior Tibialis (L), Dorsalis Pedis (R), Dorsalis Pedis (L) Skin Color: Normal for Patient Respiratory Exam: normal lung sounds Cardiovascular Exam: regular rate, normal rhythm Medical Decision Making - Lab Data Result diagrams: 06/15/22 12:24 06/15/22 12:24 Lab Results 06/15/22 06/15/22 Range/Units 12:24 12:24 WBC 17.9 H (3.8-10.6) k/uL RBC 3.89 (3.80-5.40) m/uL Hgb 12.5 (11.4-16.0) gm/dL Hct 38.1 (34.0-46.0) % MCV 97.9 (80.0-100.0) fL MCH 32.0 (25.0-35.0) pg MCHC 32.7 (31.0-37.0) g/dL RDW 14.0 (11.5-15.5) % Plt Count 276 (150-450) k/uL MPV 10.3 Neutrophils % 87 % Lymphocytes % 6 % Monocytes % 5 % Eosinophils % 0 % Basophils % 0 % Neutrophils # 15.5 H (1.3-7.7) k/uL Lymphocytes # 1.1 (1.0-4.8) k/uL Monocytes # 0.9 (0-1.0) k/uL Eosinophils # 0.0 (0-0.7) k/uL Basophils # 0.0 (0-0.2) k/uL Sodium 146 H (137-145) mmol/L Potassium 3.9 (3.5-5.1) mmol/L Chloride 110 H (98-107) mmol/L Carbon Dioxide 27 (22-30) mmol/L Anion Gap 9 mmol/L BUN 39 H (7-17) mg/dL Creatinine 0.84 (0.52-1.04) mg/dL Est GFR (CKD-EPI)AfAm 72 (>60 ml/min/1.73 sqM) Est GFR (CKD-EPI)NonAf 63 (>60 ml/min/1.73 sqM) Glucose 132 H (74-99) mg/dL Calcium 9.8 (8.4-10.2) mg/dL Disposition Clinical Impression: Pneumonia Disposition: ADMITTED IP TO THIS HOSP Referrals: Angel Kovacs DO [Primary Care Provider] - 1-2 days Decision Date: 06/15/22 Decision Time: 13:45
[2022-06-15 12:38] LABS: Basophils % (A) 0 %; Eosinophils % (A) 0 %; HCT 38.1 % (34.0-46.0); HGB 12.5 gm/dL (11.4-16.0); Lymphocytes # (A) 1.1 k/uL (1.0-4.8); Lymphocytes % (A) 6 %; MCHC 32.7 g/dL (31.0-37.0); MCV 97.9 fL (80.0-100.0); Mean Platelet Volume 10.3; Monocytes # (A) 0.9 k/uL (0-1.0); Monocytes % (A) 5 %; Neutrophils # (A) 15.5 k/uL (1.3-7.7); Neutrophils % (A) 87 %; Platelet Count 276 k/uL (150-450); RBC 3.89 m/uL (3.80-5.40); WBC 17.9 k/uL (3.8-10.6)
[2022-06-15 12:59] LABS: Calcium 9.8 mg/dL (8.4-10.2); Potassium 3.9 mmol/L (3.5-5.1)
--- NOTE | 2022-06-15 13:20 | XR ---
EXAMINATION TYPE: XR chest 2V DATE OF EXAM: 06/15/2022 12:54 PM COMPARISON: Chest radiographs from 04/22/2022 TECHNIQUE: XR chest 2V Frontal and lateral views of the chest. CLINICAL INDICATION:Female, 86 years old with history of reported congestion; FINDINGS: Lungs/Pleura: Similar left lower lobe probable calcified granuloma dating back to 2016. Scattered air space opacities are seen throughout the right lung which could be due to low lung volumes. No pneumot horax or pleural effusion identified. Pulmonary vascularity: Unremarkable. Heart/mediastinum: Cardiomediastinal silhouette is unremarkable. Musculoskeletal: No acute osseous pathology. IMPRESSION: Scattered right-sided airspace opacities correlate for pneumonia.
[2022-06-15] MEDS ORDERED: SODIUM CHLORIDE 0.9% 1,000 ML IV STA (13:28)
[2022-06-15] MEDS ORDERED: AZITHROMYCIN 500 MG in SODIUM CHLORIDE 0.9% 250 ML IVPB STA (13:29)
[2022-06-15] MEDS ORDERED: cefTRIAXone IN SWFI 1,000 MG/10 ML SYRINGE IVP STA (13:29)
[2022-06-15] MEDS ORDERED: NALOXONE 0.4 MG/ML 1 ML VIAL IV PRN (13:41)
[2022-06-15] MEDS ORDERED: SODIUM CHLORIDE 0.9% 1,000 ML IV SCH (13:45)
[2022-06-15] MEDS ORDERED: SODIUM CHLORIDE 0.9% 500 ML 500 ML IV STA (13:47)
[2022-06-15] MEDS: ACETAMINOPHEN TAB 325 MG TAB PO PRN (15:20)
[2022-06-15] MEDS ORDERED: CALCIUM CARBONATE 500 MG CHEWABLE PO PRN (17:29)
[2022-06-15] MEDS ORDERED: ARTIFICIAL TEARS-HYPROMELLOSE DROPS 15 ML BTL BOTH EYES PRN (17:29)
[2022-06-15] MEDS ORDERED: BUDESONIDE 0.25 MG/2 ML NEBU INHALATION SCH (20:00)
--- NOTE | 2022-06-15 20:56 | P.HPIM ---
History of Present Illness H&P Date: 06/15/22 Chief Complaint: Cough and congestion Patient is a 86-year-old female with a known history of advanced dementia, COPD, history of right lung spontaneous pneumothorax/chest tube inserted and surgery, osteoporosis, chronic left hip pain and lower back. And peripheral vascular disease, history of COVID-19 infection 2020 and prior history of smoking and other multiple medical problems sent to ER from assisted living facility due to complaints of cough congestion and failure to thrive. Patient was diagnosed with bronchitis and was started on Ceftin yesterday. Patient has not been eating well or drinking. Otherwise patient is a poor historian. Family is at bedside. She has been feeling weak. Otherwise no fever or chills. No nausea vomiting or diarrhea. Patient has been afebrile on admission. Chest x-ray showed scattered right-sided airspace opacities correlate for pneumonia. Laboratory data showed WBC 17.9 hemoglobin 12.5, platelets 276 Sodium 146 potassium 3.9 chloride 110 bicarb is 27 BUN 39 and creatinine 0.84 and blood sugar is 132 and lactic acid 1.0 calcium 9.8 Influenza A, B, RSV and COVID-19 PCR not detected. Review of Systems Complete review of systems could not be obtained from the patient Past Medical History Past Medical History: COPD, Dementia, Hypertension, Memory Impairment, Pneumonia, Skin Disorder, Vascular Disorder Additional Past Medical History / Comment(s): Past HTN but off medication d/t weight loss/lower blood pressure, R lung spontaneous pneumothorax/chest tube inserted and surgery done, bronchitis, cognitive impairment, osteoporosis, chronic pain L hip and lately lower back, poor circulation bilateral legs, covid 2020, prolapsed uterus, diverticular disease, varicosities bilaterally, infrequent vertigo, UTI, incontinence, atopic dermatitis, wheelchair bound and recently slid out of wheelchair. History of Any Multi-Drug Resistant Organisms: None Reported Past Surgical History: No Surgical Hx Reported Additional Past Surgical History / Comment(s): 2016 R lung surgery d/t pneumothorax at [facility] Dr. Pena, throat polyps removed, peridontal surgery. Past Anesthesia/Blood Transfusion Reactions: No Reported Reaction Additional Past Anesthesia/Blood Transfusion Reaction / Comment(s): ronit espino Past Psychological History: No Psychological Hx Reported Additional Psychological History / Comment(s): Pt resides at [facility] in [place], [place]. She is assisted by 1-2 staff to wheelchair. She normally is oriented to person and sometimes place. She is incontinent of urine and stool. She has oxygen at 2L/NC ATC. She can feed herself but needs alot of prompting. Please see nursing note attached to this nursing past medical history document. Smoking Status: Former smoker Past Alcohol Use History: None Reported Additional Past Alcohol Use History / Comment(s): Pt started smoking in 1953 and quit in 1993. Past Drug Use History: None Reported - Past Family History Father Family Medical History: Coronary Artery Disease (CAD) Additional Family Medical History / Comment(s): ashd, at age 86. Father was a "drinker" Mother Additional Family Medical History / Comment(s): at age 41 in childbirth Medications and Allergies Home Medications Medication Instructions Recorded Confirmed Type Artificial Tears-Hypromellose 1 drops BOTH EYES DIRECTED PRN 05/26/21 0 06/15/22 History [Artificial Tear Drops] Bismuth Subsalicylate 1 dose PO DIRECTED PRN 05/26/21 06/15/22 History [Pepto-Bismol] Budesonide/Formoterol Fumarate 2 puff INHALATION RT-BID@0830,2030 05/26/21 06/15/22 History [Symbicort 160-4.5 Mcg Inhaler] Carbamide Peroxide [Debrox Otic] 1 applic BOTH EARS DIRECTED PRN 05/26/21 06/15/22 History Cholecalciferol [Vitamin D3 (25 25 mcg PO DAILY@0800 05/26/21 06/15/22 History Mcg = 1000 Iu)] Gnp Muscle Rub 10-15% Cream 1 applic TOPICAL DIRECTED PRN 05/26/21 06/15/22 History Hydrocortisone Cream 1 applic TOPICAL DIRECTED PRN 05/26/21 06/15/22 History [Hydrocortisone 1% Cream] Ipratropium/Albuter 20-100Mcg 1 puff INHALATION RT-QID 05/26/21 06/15/22 History [Combivent Respimat 20-100Mcg Inhaler] Loperamide HCl [Loperamide] 2 mg PO DIRECTED PRN 05/26/21 06/15/22 History Loratadine 10 mg PO Q48H 05/26/21 06/15/22 History Mag Hydrox/Aluminum Hyd/Simeth 1 dose PO DIRECTED PRN 05/26/21 06/15/22 History [Mylanta Maximum Strength Liq] Magnesium Capsule 300 mg PO DAILY@0800 05/26/21 06/15/22 History Methyl Salicylate/Menth/Camph 1 patch TOPICAL DAILY PRN 05/26/21 06/15/22 History [Salonpas 3.1%-6.0%-10.0% Patch] Multivitamins, Thera [Multivitamin 2 tab PO DAILY@0800 05/26/21 06/15/22 History (formulary)] Simethicone [Gas-X] 1 dose PO DIRECTED PRN 05/26/21 06/15/22 History Sudogest Pe 10 mg PO DIRECTED PRN 05/26/21 06/15/22 History guaiFENesin-Coden 100-10MG/5ML 1 dose PO DIRECTED PRN 05/26/21 06/15/22 History [Robitussin AC] Calcium Carbonate [Tums] 500 mg PO DIRECTED PRN 08/01/21 06/15/22 History Acetaminophen Tab [Tylenol Tab] 500 - 1,000 mg PO Q4H PRN 06/15/22 06/15/22 History Acetaminophen [Tylenol] 650 mg PO BID@0800,199906/15/22 06/15/22 History Ciprofloxacin Ophth Soln [Cipro 1 drops BOTH EYES QID 06/15/22 06/15/22 History 0.3% Ophth Soln] Cyproheptadine [Cyproheptadine HCl] 2 mg PO BID@0800,199906/15/22 06/15/22 History Ibuprofen [Motrin] 600 mg PO BID PRN 06/15/22 06/15/22 History L.acidoph,Paracasei, B.lactis 1 cap PO BID@0800,199906/15/22 06/15/22 History [Probiotic] Lactose-Reduced Food [Ensure Plus 118.5 ml PO TID 06/15/22 06/15/22 History High Protein] Magnesium Hydroxide [Milk of 1 dose PO DIRECTED PRN 06/15/22 06/15/22 History Magnesia] Muscle Milk Protien Drink 1 dose PO BID@0800,1200 06/15/22 06/15/22 History Pantoprazole [Protonix] 40 mg PO DAILY@0800 06/15/22 06/15/22 History cefUROXime axetiL [Ceftin] 500 mg PO BID@0800,199906/15/22 06/15/22 History traMADol HCL 50 mg PO DAILY PRN 06/15/22 06/15/22 History traMADol HCL 50 mg PO DAILY@0800 06/15/22 06/15/22 History Allergies Allergy/AdvReac Type Severity Reaction Status Date / Time adhesive AdvReac Unknown Verified 06/15/22 12:50 bacitracin AdvReac Unknown Verified 06/15/22 12:50 [From Neosporin ([id number])] bacitracin zinc AdvReac Unknown Verified 06/15/22 12:50 [From Neosporin ([id number])] neomycin sulfate AdvReac Unknown Verified 06/15/22 12:50 [From Neosporin ([id number])] polymyxin B AdvReac Unknown Verified 06/15/22 12:50 [From Neosporin ([id number])] Physical Exam Vitals: Vital Signs Temp Pulse Pulse Resp BP BP Pulse Ox 06/15/22 19:31 97.3 F L 67 15 102/52 98 06/15/22 17:42 20 06/15/22 15:51 75 20 107/57 98 06/15/22 12:04 98 F 78 18 130/72 99 Intake and Output 06/15/22 06/15/22 06/15/22 06:59 14:59 22:59 Intake Total 260 Balance 260 Intake: Intake, IV Titration 60 Amount Sodium Chloride 0.9% 1, 60 000 ml @ 20 mls/hr IV . Q24H [facility] Rx#:[id number] Oral 200 Other: Weight 43.545 kg 43.545 kg PHYSICAL EXAMINATION: Patient is lying in the bed. Awake alert. Able to open her eyes and could not communicate. Contracted. HEENT: Normocephalic. Neck is supple. Pupils reactive. Nostrils clear. Oral cavity is moist. Neck reveals no JVD, carotid bruits, or thyromegaly. CHEST EXAMINATION: Trachea is central. Symmetrical expansion. Bibasilar diminished sounds. No wheezing. Shallow breaths.. CARDIAC: Normal S1, S2 with no gallops. No murmurs ABDOMEN: Soft. Bowel sounds present. Nontender. No organomegaly. No abdominal bruits. Extremities: reveal no edema. No clubbing or cyanosis Neurologically awake, alert, oriented x 0 advanced dementia. No gross focal deficits. Skin: No rash or skin lesions. Psychiatric: Coperative. Could not be assessed., Musculoskeletal: No joint swelling or deformity. Results CBC & Chem 7: 06/15/22 12:24 06/15/22 12:24 Labs: Abnormal Lab Results - Last 24 Hours (Table) 06/15/22 06/15/22 Range/Units 12:24 12:24 WBC 17.9 H (3.8-10.6) k/uL Neutrophils # 15.5 H (1.3-7.7) k/uL Sodium 146 H (137-145) mmol/L Chloride 110 H (98-107) mmol/L BUN 39 H (7-17) mg/dL Glucose 132 H (74-99) mg/dL Thrombosis Risk Factor Assmnt - DVT/VTE Prophylaxis DVT/VTE Prophylaxis: Pharmacologic Prophylaxis ordered - Choose All That Apply Any of the Below Risk Factors Present?: Yes Each Factor Represents 1 point: Serious lung disease incl. pneumonia (< 1month), Varicose veins Other Risk Factors: Yes Each Risk Factor Represents 3 Points: Age 75 years or older Thrombosis Risk Factor Assessment Total Risk Factor Score: 5 Thrombosis Risk Factor Assessment Level: High Risk Assessment and Plan Assessment: Pneumonia with right-sided scattered airspace opacities. Generalized weakness, decreased appetite and failure to thrive. Advanced dementia Peripheral vascular disease Osteoporosis History of right lung spontaneous pneumothorax/chest tube insertion and surgery Prior history of hypertension History of smoking quit 1993 History of COVID-19 in 2020 Medical debility and wheelchair-bound. Currently at assisted living facility DVT prophylaxis heparin subcu CODE STATUS DNR/DNI Plan: Patient will be continued on antibiotics in the form of ceftriaxone and azithromycin. Continue with DuoNebs and Symbicort and continue with home medications and pain management. Follow-up with blood cultures. TURF GROWER consult for swallow evaluation and diet as tolerated. Discussed with the family at bedside in detail. Currently CODE STATUS is DNR/DNI Time with Patient: Greater than 30
[2022-06-15] MEDS: IPRATROPIUM-ALBUTEROL 3 ML NEB INHALATION SCH (21:05)
[2022-06-15] MEDS ORDERED: DEXTROSE 5%-0.45% NACL 1,000 ML IV SCH (22:00)
[2022-06-16 00:01] LABS: Appearance,Urine Clear (Clear); Bacteria,Urine Rare /hpf; Bilirubin,Urine Negative (Negative); Blood,Urine Trace (Negative); Color,Urine Yellow; Glucose,Urine (UA) Negative (Negative); Hyaline Casts,Urine 3 /lpf (0-2); Ketones,Urine Negative (Negative); Leukocyte Esterase,Urine Large (Negative); Mucus,Urine Rare /hpf; Nitrite,Urine Negative (Negative); Protein,Urine 1+ (Negative); RBC,Urine 15 /hpf (0-5); Specific Gravity,Urine 1.024 (1.001-1.035); Squamous Epithelial Cell,Urine <1 /hpf (0-4); Urobilinogen,Urine <2.0 mg/dL (<2.0); WBC,Urine 17 /hpf (0-5)
[2022-06-16] MEDS: traMADol 50 MG TAB PO SCH (08:06)
[2022-06-16] MEDS: PANTOPRAZOLE 40 MG TABLET PO SCH (08:06)
[2022-06-16] MEDS: CHOLECALCIFEROL 25 MCG (1000 IU) TABLET PO SCH (08:06)
[2022-06-16] MEDS: MULTIVITAMINS, THERA 1 EACH TAB PO SCH (08:06)
[2022-06-16] MEDS: HEPARIN SODIUM,PORCINE/PF 5,000 UNIT/0.5 ML SYRINGE SQ SCH ×2 (08:07→20:37)
[2022-06-16] MEDS: AZITHROMYCIN 250 MG TAB PO SCH (08:07)
[2022-06-16] MEDS: BUDESONIDE 0.5 MG/2 ML NEBU INHALATION SCH ×2 (09:02→21:00)
[2022-06-16] MEDS: IPRATROPIUM-ALBUTEROL 3 ML NEB INHALATION SCH ×4 (09:02→21:00)
[2022-06-16 10:53] LABS: Basophils # (A) 0.03 X 10*3/uL (0.00-0.10); Basophils % (A) 0.2 %; Eosinophils # (A) 0.02 X 10*3/uL (0.04-0.35); Eosinophils % (A) 0.2 %; HCT 32.3 % (37.2-46.3); HGB 9.9 g/dL (12.0-15.0); Immature Grans, Automated 0.4 %; Lymphocytes # (A) 0.84 X 10*3/uL (0.90-5.00); Lymphocytes % (A) 6.5 %; MCH 30.8 pg (27.0-32.0); MCHC 30.7 g/dL (32.0-37.0); MCV 100.6 fL (80.0-97.0); Mean Platelet Volume 12.6 fL (9.5-12.2); Monocytes # (A) 0.91 X 10*3/uL (0.20-1.00); Monocytes % (A) 7.1 %; NRBC Per 100 WBC 0 /100 WBCS (0.0-0.0); Neutrophils # (A) 11.01 X 10*3/uL (1.80-7.70); Neutrophils % (A) 85.6 %; Platelet Count 238 X 10*3/uL (140-440); RBC 3.21 X 10*6/uL (4.10-5.20); RDW 15.4 % (11.5-14.5); WBC 12.86 X 10*3/uL (4.50-10.00)
[2022-06-16 11:10] LABS: African American GFR (CKD) 90.3 (60.0-200.0); Anion Gap 12.1 mmol/L (10.00-18.00); BUN/Creat Ratio 30.47 Ratio (12.00-20.00); Blood Urea Nitrogen 21.3 mg/dL (9.0-27.0); Calcium 8.7 mg/dL (8.7-10.3); Carbon Dioxide 21.9 mmol/L (20.0-27.5); Non-African American GFR(CKD) 77.9 (60.0-200.0); Potassium 3.7 mmol/L (3.5-5.5)
[2022-06-16 13:02] VITALS: BMI 14.6
[2022-06-16] MEDS: DEXTROSE 5% IN WATER 1,000 ML IV SCH ×2 (15:07→20:38)
[2022-06-16] MEDS: ACETAMINOPHEN TAB 325 MG TAB PO PRN (16:56)
--- NOTE | 2022-06-16 17:18 | CDI ---
Documentation Clarification Form Date: 06/16/2022 5:04:47 PM From: Angela Mccarthy RN, CCDS Admit Date: 06/15/2022 1:43:00 PM Patient Name: Carey Patel Visit Number: [id number] Discharge Date: ATTENTION: The Clinical Documentation Specialists (CDI) and [facility] Coding Staff appreciate your assistance in clarifying documentation. Please respond to the clarification below the line at the bottom and electronically sign. The CDI & [facility] Coding staff will review the response and follow-up if needed. Please note: Queries are made part of the Legal Health Record. If you have any questions, please contact the author of this message via ITS. Dr. Carlos Galvez Malnutrition is documented in the nutrition diagnosis as severe malnutrition in the context of acute illness. Additional clarification regarding the severity of malnutrition is requested. History/Risk Factors: Advanced dementia, COPD, Osteoporosis, Failure to thrive, Pneumonia Clinical Indicators: 86-year-old female present with failure to thrive. She is a 1:1 feed. She has severe muscle wasting and subcutaneous fat loss Current BMI: 14.6 Insufficient energy intake: Weight Loss: Weight 36.287 kg Estimated by family 5ft 2 in states wt. maintained x 3 months Loss of subcutaneous fat: Yes Loss of muscle mass: Yes RD Consult Assessment: Severe malnutrition Altered mental status d/t advanced dementia, poor appetite Treatment: General/healthful diet Texture-modified diet chopped diet, thin liquids Commercial beverage Ensure Enlive, Magic cups TID -chocolate per daughter's request 1:1 feeding assistance and encouragement Monitor supplement intake Please clarify the type of malnutrition, if known: [ x ] Mild Protein-Calorie Malnutrition [ ] Moderate Protein-Calorie Malnutrition [ ] Severe Protein-Calorie Malnutrition [ ] Other condition, please specify [ ] Unable to Determine (Template Last Revised: May 2020) MTDD
[2022-06-17 06:41] LABS: Basophils % (A) 0 %; Eosinophils # (A) 0.2 k/uL (0-0.7); Eosinophils % (A) 2 %; HGB 10.5 gm/dL (11.4-16.0); Lymphocytes % (A) 10 %; MCH 32.5 pg (25.0-35.0); MCHC 32.6 g/dL (31.0-37.0); MCV 99.5 fL (80.0-100.0); Mean Platelet Volume 10.4; Monocytes # (A) 0.6 k/uL (0-1.0); Monocytes % (A) 5 %; Neutrophils # (A) 8.1 k/uL (1.3-7.7); Neutrophils % (A) 80 %; Platelet Count 222 k/uL (150-450); RBC 3.22 m/uL (3.80-5.40); RDW 13.8 % (11.5-15.5)
[2022-06-17] MEDS: HEPARIN SODIUM,PORCINE/PF 5,000 UNIT/0.5 ML SYRINGE SQ SCH ×2 (09:25→20:43)
[2022-06-17] MEDS: AZITHROMYCIN 250 MG TAB PO SCH (09:25)
[2022-06-17] MEDS: traMADol 50 MG TAB PO SCH (09:25)
[2022-06-17] MEDS: MULTIVITAMINS, THERA 1 EACH TAB PO SCH (09:26)
[2022-06-17] MEDS: CHOLECALCIFEROL 25 MCG (1000 IU) TABLET PO SCH (09:26)
[2022-06-17] MEDS: PANTOPRAZOLE 40 MG TABLET PO SCH (09:26)
[2022-06-17] MEDS: IPRATROPIUM-ALBUTEROL 3 ML NEB INHALATION SCH ×4 (09:37→20:30)
[2022-06-17] MEDS: BUDESONIDE 0.5 MG/2 ML NEBU INHALATION SCH ×2 (09:37→20:30)
[2022-06-17 10:22] LABS: African American GFR (CKD) 92.8 (60.0-200.0); BUN/Creat Ratio 25.43 Ratio (12.00-20.00); Blood Urea Nitrogen 16.4 mg/dL (9.0-27.0); Calcium 8.7 mg/dL (8.7-10.3); Carbon Dioxide 19.8 mmol/L (20.0-27.5); Chloride 105 mmol/L (96-109); Glucose 105 mg/dL (70-110); Potassium 4.2 mmol/L (3.5-5.5); Sodium 137 mmol/L (135-145)
[2022-06-17] MEDS: ACETAMINOPHEN TAB 325 MG TAB PO PRN (12:45)
[2022-06-17] MEDS: DEXTROSE 5%-0.45% NACL 1,000 ML IV SCH ×2 (18:23→19:41)
--- NOTE | 2022-06-18 00:28 | P.PN ---
Subjective Progress Note Date: 06/16/22 Patient is a 86-year-old female with a known history of advanced dementia, COPD, history of right lung spontaneous pneumothorax/chest tube inserted and surgery, osteoporosis, chronic left hip pain and lower back. And peripheral vascular disease, history of COVID-19 infection 2020 and prior history of smoking and other multiple medical problems sent to ER from assisted living facility due to complaints of cough congestion and failure to thrive. Patient was diagnosed with bronchitis and was started on Ceftin yesterday. Patient has not been eating well or drinking. Otherwise patient is a poor historian. Family is at bedside. She has been feeling weak. Otherwise no fever or chills. No nausea v omiting or diarrhea. Patient has been afebrile on admission. Chest x-ray showed scattered right-sided airspace opacities correlate for pneumonia. Laboratory data showed WBC 17.9 hemoglobin 12.5, platelets 276 Sodium 146 potassium 3.9 chloride 110 bicarb is 27 BUN 39 and creatinine 0.84 and blood sugar is 132 and lactic acid 1.0 calcium 9.8 Influenza A, B, RSV and COVID-19 PCR not detected. 06/16/2022 Patient is currently lying in the bed. Awake and alert. Patient states that she feels better. No complaints of chest pain or shortness of breath. No nausea vomiting. Tolerating oral diet with one-to-one feeding. No cough or sputum production. Patient is afebrile. Hemodynamically stable. Laboratory data showed WBC 12.8 hemoglobin 9.9 and platelets 258 Sodium 148 potassium 3.7 chloride 114 bicarb is 21.9 BUN 21.3 and creatinine 0.3. Urine culture is pending. Patient is ceftriaxone. Current medications reviewed. Objective - Vital Signs Vital signs: Vital Signs Temp 97.7 F 06/16/22 19:52 Pulse 100 06/16/22 21:19 Resp 32 H 06/16/22 19:54 BP 92/58 06/16/22 19:52 Pulse Ox 95 06/16/22 19:52 FiO2 Intake & Output 06/16/22 06/16/22 06/17/22 06:59 18:59 06:59 Intake Total 400 Output Total 400 300 Balance 0 -300 Weight 36.287 kg Intake: Intake, IV Titration 350 Amount Dextrose 5%-0.45% NaCl 1, 350 000 ml @ 50 mls/hr IV . Q20H [facility] Rx#:[id number] Oral 50 Output: Urine 400 300 Other: Voiding Method External Catheter External Catheter External Catheter - Exam PHYSICAL EXAMINATION: Patient is lying in the bed. Awake alert and oriented x1-2. Able to follow simple commands.. Contracted. HEENT: Normocephalic. Neck is supple. Pupils reactive. Nostrils clear. Oral cavity is moist. Neck reveals no JVD, carotid bruits, or thyromegaly. CHEST EXAMINATION: Trachea is central. Symmetrical expansion. Bibasilar diminished sounds. No wheezing. Shallow breaths.. CARDIAC: Normal S1, S2 with no gallops. No murmurs ABDOMEN: Soft. Bowel sounds present. Nontender. No organomegaly. No abdominal bruits. Extremities: reveal no edema. No clubbing or cyanosis Neurologically awake, alert, oriented x 1 advanced dementia. No gross focal deficits. Skin: No rash or skin lesions. Psychiatric: Coperative. Could not be assessed completely., Musculoskeletal: No joint swelling or deformity. - Labs CBC & Chem 7: 06/17/22 06:02 06/17/22 06:02 Labs: Abnormal Lab Results - Last 24 Hours (Table) 06/15/22 06/16/22 06/16/22 Range/Units 23:08 07:34 07:34 WBC 12.86 H (4.50-10.00) X 10*3/uL RBC 3.21 L (4.10-5.20) X 10*6/uL Hgb 9.9 L (12.0-15.0) g/dL Hct 32.3 L (37.2-46.3) % MCV 100.6 H (80.0-97.0) fL MCHC 30.7 L (32.0-37.0) g/dL RDW 15.4 H (11.5-14.5) % MPV 12.6 H (9.5-12.2) fL Immature Gran # 0.05 H (0.00-0.04) X 10*3/uL Neutrophils # 11.01 H (1.80-7.70) X 10*3/uL Lymphocytes # 0.84 L (0.90-5.00) X 10*3/uL Eosinophils # 0.02 L (0.04-0.35) X 10*3/uL Sodium 148 H (135-145) mmol/L Chloride 114 H (96-109) mmol/L BUN/Creatinine Ratio 30.47 H (12.00-20.00) Ratio Urine Protein 1+ H (Negative) Urine Blood Trace H (Negative) Ur Leukocyte Esterase Large H (Negative) Urine RBC 15 H (0-5) /hpf Urine WBC 17 H (0-5) /hpf Urine Bacteria Rare H (None) /hpf Hyaline Casts 3 H (0-2) /lpf Urine Mucus Rare H (None) /hpf Microbiology - Last 24 Hours (Table) 06/15/22 23:08 Urine Culture - Preliminary Urine,Voided Assessment and Plan Assessment: Pneumonia with right-sided scattered airspace opacities. Generalized weakness, decreased appetite and failure to thrive. Hypernatremia Advanced dementia Peripheral vascular disease Osteoporosis History of right lung spontaneous pneumothorax/chest tube insertion and surgery Prior history of hypertension History of smoking quit 1993 History of COVID-19 in 2020 Medical debility and wheelchair-bound. Currently at assisted living facility DVT prophylaxis heparin subcu CODE STATUS DNR/DNI Plan: IV fluids continue to D5 water at 75 cc/h Patient will be continued on antibiotics in the form of ceftriaxone and azithromycin. Continue with DuoNebs and Symbicort and continue with home medications and pain management. Urine cultures pending. DATA CENTER TECHNICIAN consult for swallow evaluation and diet as tolerated. CODE STATUS is DNR/DNI Time with Patient: Greater than 30
--- NOTE | 2022-06-18 01:04 | P.PN ---
Subjective Progress Note Date: 06/17/22 Patient is a 86-year-old female with a known history of advanced dementia, COPD, history of right lung spontaneous pneumothorax/chest tube inserted and surgery, osteoporosis, chronic left hip pain and lower back. And peripheral vascular disease, history of COVID-19 infection 2020 and prior history of smoking and other multiple medical problems sent to ER from assisted living facility due to complaints of cough congestion and failure to thrive. Patient was diagnosed with bronchitis and was started on Ceftin yesterday. Patient has not been eating well or drinking. Otherwise patient is a poor historian. Family is at bedside. She has been feeling weak. Otherwise no fever or chills. No nausea v omiting or diarrhea. Patient has been afebrile on admission. Chest x-ray showed scattered right-sided airspace opacities correlate for pneumonia. Laboratory data showed WBC 17.9 hemoglobin 12.5, platelets 276 Sodium 146 potassium 3.9 chloride 110 bicarb is 27 BUN 39 and creatinine 0.84 and blood sugar is 132 and lactic acid 1.0 calcium 9.8 Influenza A, B, RSV and COVID-19 PCR not detected. 06/16/2022 Patient is currently lying in the bed. Awake and alert. Patient states that she feels better. No complaints of chest pain or shortness of breath. No nausea vomiting. Tolerating oral diet with one-to-one feeding. No cough or sputum production. Patient is afebrile. Hemodynamically stable. Laboratory data showed WBC 12.8 hemoglobin 9.9 and platelets 258 Sodium 148 potassium 3.7 chloride 114 bicarb is 21.9 BUN 21.3 and creatinine 0.3. Urine culture is pending. Patient is on ceftriaxone. 06/17/2022 Patient is currently resting in bed. Awake and alert. Patient states that she feels fine. Able to tolerate with one-to-one feeding. No complaints of chest pain or shortness of breath. Breathing status is stable. Currently on 2 L oxygen via nasal cannula. IV fluids changed to half-normal saline. Laboratory data showed WBC 10.0 hemoglobin 10.5 and platelets 222 Sodium 137 potassium 4.2 chloride 105 bicarb is 19.8 BUN 16.4 and creatinine 0.6 TSH and B12 within normal limits. PT OT follow-up plan anticipate discharge back to assisted living facility in the next 24 to 48 hours. Current medications reviewed. Objective - Vital Signs Vital signs: Vital Signs Temp 98.5 F 06/17/22 14:00 Pulse 98 06/17/22 20:44 Resp 17 06/17/22 14:00 BP 93/60 06/17/22 14:00 Pulse Ox 99 06/17/22 14:00 FiO2 Intake & Output 06/17/22 06/17/22 06/18/22 06:59 18:59 06:59 Intake Total 775 Output Total 450 250 Balance -450 525 Intake: Intake, IV Titration 775 Amount Dextrose 5% in Water 1, 375 000 ml @ 75 mls/hr IV . [id number] [facility] Rx#:[id number] Dextrose 5%-0.45% NaCl 1, 350 000 ml @ 50 mls/hr IV . Q20H [facility] Rx#:[id number] cefTRIAXone 1 gm In 50 Sodium Chloride 0.9% 50 ml @ 100 mls/hr IVPB Q24HR [facility] Rx#:[id number] Output: Urine 450 250 Other: Voiding Method External Catheter External Catheter External Catheter - Exam PHYSICAL EXAMINATION: Patient is lying in the bed. Awake alert and oriented x1-2. Able to follow simple commands.. Contracted. HEENT: Normocephalic. Neck is supple. Pupils reactive. Nostrils clear. Oral cavity is moist. Neck reveals no JVD, carotid bruits, or thyromegaly. CHEST EXAMINATION: Trachea is central. Symmetrical expansion. Bibasilar diminished sounds. No wheezing. Shallow breaths.. CARDIAC: Normal S1, S2 with no gallops. No murmurs ABDOMEN: Soft. Bowel sounds present. Nontender. No organomegaly. No abdominal bruits. Extremities: reveal no edema. No clubbing or cyanosis Neurologically awake, alert, oriented x 1 advanced dementia. No gross focal deficits. Skin: No rash or skin lesions. Psychiatric: Coperative. Could not be assessed completely., Musculoskeletal: No joint swelling or deformity. - Labs CBC & Chem 7: 06/17/22 06:02 06/17/22 06:02 Labs: Abnormal Lab Results - Last 24 Hours (Table) 06/17/22 06/17/22 Range/Units 06:02 06:02 RBC 3.22 L (3.80-5.40) m/uL Hgb 10.5 L (11.4-16.0) gm/dL Hct 32.0 L (34.0-46.0) % Neutrophils # 8.1 H (1.3-7.7) k/uL Carbon Dioxide 19.8 L (20.0-27.5) mmol/L BUN/Creatinine Ratio 25.43 H (12.00-20.00) Ratio Microbiology - Last 24 Hours (Table) 06/15/22 23:08 Urine Culture - Final Urine,Voided Assessment and Plan Assessment: Pneumonia with right-sided scattered airspace opacities. Generalized weakness, decreased appetite and failure to thrive. Hypernatremia Advanced dementia Peripheral vascular disease Osteoporosis History of right lung spontaneous pneumothorax/chest tube insertion and surgery Prior history of hypertension History of smoking quit 1993 History of COVID-19 in 2020 Medical debility and wheelchair-bound. Currently at assisted living facility DVT prophylaxis heparin subcu CODE STATUS DNR/DNI Plan: IV fluids chnaged to d5 0.45 saline. Patient will be continued on antibiotics in the form of ceftriaxone and azithromycin. Continue with DuoNebs and Symbicort and continue with home medications and pain management. Urine cultures no growth. diet as tolerated. CODE STATUS is DNR/DNI
[2022-06-18] MEDS: BUDESONIDE 0.5 MG/2 ML NEBU INHALATION SCH ×2 (09:00→19:22)
[2022-06-18] MEDS: IPRATROPIUM-ALBUTEROL 3 ML NEB INHALATION SCH ×4 (09:00→19:19)
[2022-06-18 09:12] LABS: Anion Gap 8.5 mmol/L (10.00-18.00); BUN/Creat Ratio 22.5 Ratio (12.00-20.00); Blood Urea Nitrogen 13.5 mg/dL (9.0-27.0); Calcium 9.2 mg/dL (8.7-10.3); Carbon Dioxide 25.5 mmol/L (20.0-27.5); Potassium 4.1 mmol/L (3.5-5.5)
[2022-06-18 09:24] LABS: Basophils # (A) 0.05 X 10*3/uL (0.00-0.10); Basophils % (A) 0.5 %; Eosinophils % (A) 4.1 %; HCT 33.6 % (37.2-46.3); HGB 10.5 g/dL (12.0-15.0); Immature Grans, Automated 0.3 %; Lymphocytes # (A) 1.03 X 10*3/uL (0.90-5.00); Lymphocytes % (A) 10.6 %; MCH 31.4 pg (27.0-32.0); MCHC 31.3 g/dL (32.0-37.0); MCV 100.6 fL (80.0-97.0); Mean Platelet Volume 12.6 fL (9.5-12.2); Monocytes % (A) 10.3 %; NRBC Per 100 WBC 0 /100 WBCS (0.0-0.0); Neutrophils # (A) 7.24 X 10*3/uL (1.80-7.70); Neutrophils % (A) 74.2 %; Platelet Count 291 X 10*3/uL (140-440); RBC 3.34 X 10*6/uL (4.10-5.20); RDW 14.5 % (11.5-14.5); WBC 9.75 X 10*3/uL (4.50-10.00)
[2022-06-18] MEDS: traMADol 50 MG TAB PO SCH (11:04)
[2022-06-18] MEDS: HEPARIN SODIUM,PORCINE/PF 5,000 UNIT/0.5 ML SYRINGE SQ SCH ×2 (11:04→21:20)
[2022-06-18] MEDS: PANTOPRAZOLE 40 MG TABLET PO SCH (11:06)
[2022-06-18] MEDS: MULTIVITAMINS, THERA 1 EACH TAB PO SCH (11:07)
[2022-06-18] MEDS: AZITHROMYCIN 250 MG TAB PO SCH (11:07)
[2022-06-18] MEDS: CHOLECALCIFEROL 25 MCG (1000 IU) TABLET PO SCH (11:07)
[2022-06-18] MEDS: ACETAMINOPHEN TAB 325 MG TAB PO PRN (13:47)
--- NOTE | 2022-06-19 01:17 | P.PN ---
Subjective Progress Note Date: 06/18/22 Patient is a 86-year-old female with a known history of advanced dementia, COPD, history of right lung spontaneous pneumothorax/chest tube inserted and surgery, osteoporosis, chronic left hip pain and lower back. And peripheral vascular disease, history of COVID-19 infection 2020 and prior history of smoking and other multiple medical problems sent to ER from assisted living facility due to complaints of cough congestion and failure to thrive. Patient was diagnosed with bronchitis and was started on Ceftin yesterday. Patient has not been eating well or drinking. Otherwise patient is a poor historian. Family is at bedside. She has been feeling weak. Otherwise no fever or chills. No nausea v omiting or diarrhea. Patient has been afebrile on admission. Chest x-ray showed scattered right-sided airspace opacities correlate for pneumonia. Laboratory data showed WBC 17.9 hemoglobin 12.5, platelets 276 Sodium 146 potassium 3.9 chloride 110 bicarb is 27 BUN 39 and creatinine 0.84 and blood sugar is 132 and lactic acid 1.0 calcium 9.8 Influenza A, B, RSV and COVID-19 PCR not detected. 06/16/2022 Patient is currently lying in the bed. Awake and alert. Patient states that she feels better. No complaints of chest pain or shortness of breath. No nausea vomiting. Tolerating oral diet with one-to-one feeding. No cough or sputum production. Patient is afebrile. Hemodynamically stable. Laboratory data showed WBC 12.8 hemoglobin 9.9 and platelets 258 Sodium 148 potassium 3.7 chloride 114 bicarb is 21.9 BUN 21.3 and creatinine 0.3. Urine culture is pending. Patient is on ceftriaxone. 06/17/2022 Patient is currently resting in bed. Awake and alert. Patient states that she feels fine. Able to tolerate with one-to-one feeding. No complaints of chest pain or shortness of breath. Breathing status is stable. Currently on 2 L oxygen via nasal cannula. IV fluids changed to half-normal saline. Laboratory data showed WBC 10.0 hemoglobin 10.5 and platelets 222 Sodium 137 potassium 4.2 chloride 105 bicarb is 19.8 BUN 16.4 and creatinine 0.6 TSH and B12 within normal limits. PT OT follow-up plan anticipate discharge back to assisted living facility in the next 24 to 48 hours. 06/18/2022 Patient is currently resting in bed. Awake alert and mentation is at baseline. Patient is able to tolerate oral diet with one-to-one feeding. Continued on IV hydration with D5 half normal saline. No complaints of chest pain or shortness of breath. Blood pressure is stable. Urine culture showed no growth. Anticipate discharge back to assisted living facility tomorrow. Current medications reviewed. Objective - Vital Signs Vital signs: Vital Signs Temp 98.9 F 06/18/22 14:00 Pulse 83 06/18/22 19:31 Resp 16 06/18/22 19:31 BP 98/60 06/18/22 14:00 Pulse Ox 96 06/18/22 09:00 FiO2 Intake & Output 06/18/22 06/18/22 06/19/22 06:59 18:59 06:59 Intake Total 600 Output Total 600 600 Balance 0 -600 Intake: Intake, IV Titration 600 Amount Dextrose 5%-0.45% NaCl 1, 600 000 ml @ 50 mls/hr IV . Q20H [facility] Rx#:[id number] Output: Urine 600 600 Other: Voiding Method External Catheter External Catheter # Voids 1 # Bowel Movements 1 - Exam PHYSICAL EXAMINATION: Patient is lying in the bed. Awake alert and oriented x1-2. Able to follow simple commands.. Contracted. HEENT: Normocephalic. Neck is supple. Pupils reactive. Nostrils clear. Oral cavity is moist. Neck reveals no JVD, carotid bruits, or thyromegaly. CHEST EXAMINATION: Trachea is central. Symmetrical expansion. Bibasilar diminished sounds. No wheezing. Shallow breaths.. CARDIAC: Normal S1, S2 with no gallops. No murmurs ABDOMEN: Soft. Bowel sounds present. Nontender. No organomegaly. No abdominal bruits. Extremities: reveal no edema. No clubbing or cyanosis Neurologically awake, alert, oriented x 1 advanced dementia. No gross focal deficits. Skin: No rash or skin lesions. Psychiatric: Coperative. Could not be assessed completely., Musculoskeletal: No joint swelling or deformity. - Labs CBC & Chem 7: 06/18/22 04:55 06/18/22 04:55 Labs: Abnormal Lab Results - Last 24 Hours (Table) 06/18/22 06/18/22 Range/Units 04:55 04:55 RBC 3.34 L (4.10-5.20) X 10*6/uL Hgb 10.5 L (12.0-15.0) g/dL Hct 33.6 L (37.2-46.3) % MCV 100.6 H (80.0-97.0) fL MCHC 31.3 L (32.0-37.0) g/dL MPV 12.6 H (9.5-12.2) fL Eosinophils # 0.40 H (0.04-0.35) X 10*3/uL Anion Gap 8.50 L (10.00-18.00) mmol/L BUN/Creatinine Ratio 22.50 H (12.00-20.00) Ratio Assessment and Plan Assessment: Pneumonia with right-sided scattered airspace opacities. Generalized weakness, decreased appetite and failure to thrive. Hypernatremia Advanced dementia Peripheral vascular disease Osteoporosis History of right lung spontaneous pneumothorax/chest tube insertion and surgery Prior history of hypertension History of smoking quit 1993 History of COVID-19 in 2020 Medical debility and wheelchair-bound. Currently at assisted living facility DVT prophylaxis heparin subcu CODE STATUS DNR/DNI Plan: IV fluids chnaged to d5 0.45 saline. Patient will be continued on antibiotics in the form of ceftriaxone and azithromycin. Continue with DuoNebs and Symbicort and continue with home medications and pain management. Urine cultures no growth. diet as tolerated. CODE STATUS is DNR/DNI
[2022-06-19] MEDS: CHOLECALCIFEROL 25 MCG (1000 IU) TABLET PO SCH (07:41)
[2022-06-19] MEDS: PANTOPRAZOLE 40 MG TABLET PO SCH (07:41)
[2022-06-19] MEDS: MULTIVITAMINS, THERA 1 EACH TAB PO SCH (07:41)
[2022-06-19] MEDS: traMADol 50 MG TAB PO SCH (07:41)
[2022-06-19] MEDS: HEPARIN SODIUM,PORCINE/PF 5,000 UNIT/0.5 ML SYRINGE SQ SCH (07:42)
--- NOTE | 2022-06-19 08:00 | XR ---
EXAMINATION TYPE: XR chest 1V DATE OF EXAM: 06/19/2022 COMPARISON: 06/15/2022 INDICATION: Pneumonia TECHNIQUE: Single frontal view of the chest is obtained. FINDINGS: There is scoliosis present. The chin overlies the apex. The patient is rotated to the left The heart size is normal. The pulmonary vasculature is normal. Increased lung markings are through the right lung field. A small right pleural effusion appears to b e present. Minimal left pleural effusion is not excluded. Postsurgical suture appears to be within the right lung field Prior nodular density at the left lung base is not identified on the current exam IMPRESSION: 1. Small left and minimal right pleural effusion. 2. Diffuse increased lung markings to the right lung slightly increased. A focal consolidation howeve r is not identified. Follow-up is recommended.
[2022-06-19] MEDS: BUDESONIDE 0.5 MG/2 ML NEBU INHALATION SCH (09:46)
[2022-06-19] MEDS: IPRATROPIUM-ALBUTEROL 3 ML NEB INHALATION SCH ×2 (09:46→12:56)
[2022-06-19 10:53] LABS: African American GFR (CKD) 89.1 (60.0-200.0); Anion Gap 13.7 mmol/L (10.00-18.00); BUN/Creat Ratio 20.76 Ratio (12.00-20.00); Blood Urea Nitrogen 14.7 mg/dL (9.0-27.0); Calcium 9.4 mg/dL (8.7-10.3); Carbon Dioxide 23.2 mmol/L (20.0-27.5); Non-African American GFR(CKD) 76.8 (60.0-200.0); Potassium 4.4 mmol/L (3.5-5.5)
[2022-06-19] MEDS: ACETAMINOPHEN TAB 325 MG TAB PO PRN (13:40)
[2022-06-19 14:51] VITALS: BP 106/46; PULSE 115; RESP 17; TEMP 98.5
--- NOTE | 2022-06-20 06:36 | P.DS ---
Providers Date of admission: 06/15/22 13:43 Expected date of discharge: 06/19/22 Attending physician: Carlos Galvez Primary care physician: Angel Kovacs [facility] Course: Final diagnosis Pneumonia with right-sided scattered airspace opacities. Generalized weakness, decreased appetite and failure to thrive. Hypernatremia Advanced dementia Peripheral vascular disease Osteoporosis History of right lung spontaneous pneumothorax/chest tube insertion and surgery Prior history of hypertension History of smoking quit 1993 History of COVID-19 in 2020 Medical debility and wheelchair-bound. Currently at assisted living facility DVT prophylaxis heparin subcu CODE STATUS DNR/DNI Discharge disposition Patient is being discharged in a stable condition with guarded prognosis to [facility]. Patient will follow-up with Dr. Gamble in the outpatient setting upon discharge. Patient is to continue with oral Ceftin 500 mg twice daily for the next 4 days to complete course. Total time taken is greater than 35 minutes. Hospital course This is a 86-year-old female who was recently admitted generalized weakness and decreased appetite not really eating showing decline being closely monitored. Patient was showing pneumonia with right-sided scattered airspace opacities. Patient also continued on antibiotics and will continue oral Ceftin for 4 days on discharge. Case management following and there is discussion of possible hospice in the outpatient setting. Patient will be returning to [facility] home with overall guarded prognosis. Currently no reports of chest pain, shortness of breath, or palpitations. Patient is afebrile. No reports of nausea or vomiting and patient is tolerating diet. Patient will be going to [facility] today. Overall poor and guarded prognosis. Physical exam: Gen: This is a 86-year-old female who is awake, alert and oriented 1, thin built, elderly appearing HEENT: Head is atraumatic, normocephalic. Pupils equal, round. Sclerae is anicteric. NECK: Supple. No JVD. No lymphadenopathy. No thyromegaly. LUNGS: Diminished breath sounds bilaterally with some scattered rhonchi. No intercostal retractions. HEART: S1, S2 are muffled ABDOMEN: Soft. Bowel sounds are present. No masses. No tenderness. EXTREMITIES: No pedal edema. No calf tenderness. NEUROLOGICAL: Patient is awake, alert and oriented x1. Diffusely weak Please refer to medication reconciliation sheet for a list of medications. The impression and plan of care has been dictated by Rosi Sales, Nurse Practitioner as directed. Dr. Adam MD I have performed a history and examination and MDM of this patient, discussed the same with the dictator, and agree with the dictator's assessment and plan as written ,documented as a scribe. Based on total visit time, I have performed more than 50% of the visit. Patient Condition at Discharge: Fair Plan - Discharge Summary Discharge Rx Participant: No New Discharge Prescriptions: Continue guaiFENesin-Coden 100-10MG/5ML [Robitussin AC] 1 dose PO DIRECTED PRN PRN Reason: Cough Sudogest Pe 10 mg PO DIRECTED PRN PRN Reason: Allergy Symptoms Simethicone [Gas-X] 1 dose PO DIRECTED PRN PRN Reason: GAS/BLOATING Methyl Salicylate/Menth/Camph [Salonpas 3.1%-6.0%-10.0% Patch] 1 patch TOPICAL DAILY PRN PRN Reason: LEFT HIP PAIN Gnp Muscle Rub 10-15% Cream 1 applic TOPICAL DIRECTED PRN PRN Reason: Muscle Pain Cholecalciferol [Vitamin D3 (25 Mcg = 1000 Iu)] 25 mcg PO DAILY@0800 Magnesium Capsule 300 mg PO DAILY@0800 Ipratropium/Albuter 20-100Mcg [Combivent Respimat 20-100Mcg Inhaler] 1 puff INHALATION RT-QID Calcium Carbonate [Tums] 500 mg PO DIRECTED PRN PRN Reason: HEARTBURN/INDIGESTION traMADol HCL 50 mg PO DAILY PRN PRN Reason: Pain Magnesium Hydroxide [Milk of Magnesia] 1 dose PO DIRECTED PRN PRN Reason: Constipation traMADol HCL 50 mg PO DAILY@0800 L.acidoph,Paracasei, B.lactis [Probiotic] 1 cap PO BID@0800,1999 Pantoprazole [Protonix] 40 mg PO DAILY@0800 Lactose-Reduced Food [Ensure Plus High Protein] 118.5 ml PO TID Cyproheptadine [Cyproheptadine HCl] 2 mg PO BID@0800,1999 Acetaminophen [Tylenol] 650 mg PO BID@0800,1999 Bismuth Subsalicylate [Pepto-Bismol] 1 dose PO DIRECTED PRN PRN Reason: Gi Upset Mag Hydrox/Aluminum Hyd/Simeth [Mylanta Maximum Strength Liq] 1 dose PO DIRECTED PRN PRN Reason: Gi Upset Loperamide HCl [Loperamide] 2 mg PO DIRECTED PRN PRN Reason: Diarrhea Hydrocortisone Cream [Hydrocortisone 1% Cream] 1 applic TOPICAL DIRECTED PRN PRN Reason: Skin Irritation Carbamide Peroxide [Debrox Otic] 1 applic BOTH EARS DIRECTED PRN PRN Reason: Ear Wax Artificial Tears-Hypromellose [Artificial Tear Drops] 1 drops BOTH EYES DIRECTED PRN PRN Reason: Dry Eye(S) Budesonide/Formoterol Fumarate [Symbicort 160-4.5 Mcg Inhaler] 2 puff INHALATION RT-BID@0830,2029 Multivitamins, Thera [Multivitamin (formulary)] 2 tab PO DAILY@0800 Loratadine 10 mg PO Q48H Acetaminophen Tab [Tylenol] 500 - 1,000 mg PO Q4H PRN PRN Reason: Fever And/ Or Pain Muscle Milk Protien Drink 1 dose PO BID@0800,1200 Ciprofloxacin Ophth Soln [Cipro 0.3% Ophth Soln] 1 drops BOTH EYES QID cefUROXime axetiL [Ceftin] 500 mg PO BID@0800,1999 4 Days #8 tab Discontinued Ibuprofen [Motrin] 600 mg PO BID PRN PRN Reason: Pain Discharge Medication List Artificial Tears-Hypromellose [Artificial Tear Drops] 1 drops BOTH EYES DIRECTED PRN 05/26/21 [History] Bismuth Subsalicylate [Pepto-Bismol] 1 dose PO DIRECTED PRN 05/26/21 [History] Budesonide/Formoterol Fumarate [Symbicort 160-4.5 Mcg Inhaler] 2 puff INHALATION RT-BID@08,202905/26/21 [History] Carbamide Peroxide [Debrox Otic] 1 applic BOTH EARS DIRECTED PRN 05/26/21 [History] Cholecalciferol [Vitamin D3 (25 Mcg = 1000 Iu)] 25 mcg PO DAILY@0800 05/26/21 [History] Gnp Muscle Rub 10-15% Cream 1 applic TOPICAL DIRECTED PRN 05/26/21 [History] Hydrocortisone Cream [Hydrocortisone 1% Cream] 1 applic TOPICAL DIRECTED PRN 05/26/21 [History] Ipratropium/Albuter 20-100Mcg [Combivent Respimat 20-100Mcg Inhaler] 1 puff INHALATION RT-QID 05/26/21 [History] Loperamide HCl [Loperamide] 2 mg PO DIRECTED PRN 05/26/21 [History] Loratadine 10 mg PO Q48H 05/26/21 [History] Mag Hydrox/Aluminum Hyd/Simeth [Mylanta Maximum Strength Liq] 1 dose PO DIRECTED PRN 05/26/21 [History] Magnesium Capsule 300 mg PO DAILY@0800 05/26/21 [History] Methyl Salicylate/Menth/Camph [Salonpas 3.1%-6.0%-10.0% Patch] 1 patch TOPICAL DAILY PRN 05/26/21 [History] Multivitamins, Thera [Multivitamin (formulary)] 2 tab PO DAILY@0800 05/26/21 [History] Simethicone [Gas-X] 1 dose PO DIRECTED PRN 05/26/21 [History] Sudogest Pe 10 mg PO DIRECTED PRN 05/26/21 [History] guaiFENesin-Coden 100-10MG/5ML [Robitussin AC] 1 dose PO DIRECTED PRN 05/26/21 [History] Calcium Carbonate [Tums] 500 mg PO DIRECTED PRN 08/01/21 [History] Acetaminophen Tab [Tylenol] 500 - 1,000 mg PO Q4H PRN 06/15/22 [History] Acetaminophen [Tylenol] 650 mg PO BID@0800,199906/15/22 [History] Ciprofloxacin Ophth Soln [Cipro 0.3% Ophth Soln] 1 drops BOTH EYES QID 06/15/22 [History] Cyproheptadine [Cyproheptadine HCl] 2 mg PO BID@0800,199906/15/22 [History] L.acidoph,Paracasei, B.lactis [Probiotic] 1 cap PO BID@0800,199906/15/22 [History] Lactose-Reduced Food [Ensure Plus High Protein] 118.5 ml PO TID 06/15/22 [History] Magnesium Hydroxide [Milk of Magnesia] 1 dose PO DIRECTED PRN 06/15/22 [History] Muscle Milk Protien Drink 1 dose PO BID@0800,1200 06/15/22 [History] Pantoprazole [Protonix] 40 mg PO DAILY@0800 06/15/22 [History] traMADol HCL 50 mg PO DAILY PRN 06/15/22 [History] traMADol HCL 50 mg PO DAILY@0800 06/15/22 [History] cefUROXime axetiL [Ceftin] 500 mg PO BID@0800,1999 4 Days #8 tab 06/19/22 [Rx] Follow up Appointment(s)/Referral(s): Angel Kovacs DO [Primary Care Provider] - 06/22/22 12:30 pm Activity/Diet/Wound Care/Special Instructions: 1. At discharge: Call [facility] to go over discharge paperwork - [employer] (installation manager) [phone] 2. Set up ambulance transport home - [phone] - (form on chart). Activity Limited until follow-up Follow-up with primary care provider on discharge Discuss possible hospice in the outpatient setting in the next few weeks Continue current diet Continue antibiotics for the next 4 days to complete the course Discharge Disposition: TRANSFER TO SNF/ECF
== END 2022-06-19 15:52 | DRG 194 ==
LOC: EC 12:00 → 4SSUR 13:43
PROVIDERS: ADMIT Internal Medicine; ATTEND Internal Medicine
DX: J18.9 Pneumonia, unspecified organism (principal); E44.1 Mild protein-calorie malnutrition; E87.0 Hyperosmolality and hypernatremia; Z68.1 Body mass index [BMI] 19.9 or less, adult; R62.7 Adult failure to thrive; M81.0 Age-related osteoporosis without current pathological fracture; Z20.822 Contact with and (suspected) exposure to COVID-19; Z93.3 Colostomy status; Z86.16 Personal history of COVID-19; E11.51 Type 2 diabetes mellitus with diabetic peripheral angiopathy without gangrene; F03.90 Unspecified dementia, unspecified severity, without behavioral disturbance, psychotic disturbance, mood disturbance, and anxiety; Z87.891 Personal history of nicotine dependence; Z66 Do not resuscitate; I10 Essential (primary) hypertension; G89.29 Other chronic pain; M25.552 Pain in left hip; L20.9 Atopic dermatitis, unspecified; R32 Unspecified urinary incontinence; Z79.51 Long term (current) use of inhaled steroids; Z79.899 Other long term (current) drug therapy; Z99.3 Dependence on wheelchair; Z87.01 Personal history of pneumonia (recurrent); Z91.048 Other nonmedicinal substance allergy status
CPT/HCPCS: 36415; 71045; 71046; 80048; 81001; 82607; 82747; 83605; 84443; 85025; 87086; 87636; 93005; 94640; 94760; 96365; 96375; 99285